=== PATIENT | female | born 1950 | race Hispanic/Latino ===

== ENCOUNTER 2017-07-08 17:04 | Emergency (ER) | payer BC ==
[2017-07-08 17:04] VITALS: BMI 32.9
[2017-07-08 17:11] VITALS: BP 153/71; PULSE 79; RESP 18; TEMP 97.9; O2SAT 100
--- NOTE | 2017-07-08 17:38 | ED PDOC ---
Lower Extremity Pain/Injury Time Seen by Provider: 07/08/17 17:14 Chief Complaint (Nursing): Lower Extremity Problem/Injury Chief Complaint (Provider): Knee Pain History Per: Patient History/Exam Limitations: no limitations Onset/Duration Of Symptoms: Days, Persistent, Worse Since (Constant, but worse for the last 2 days after tripping) Current Symptoms Are (Timing): Still Present Pain Scale Rating Of: 8 Additional History Per: Family Additional Complaint(s): 66 y/o female with history of left meniscus tear x2 years ago, accompanied by her daughters. She complains of left knee pain over the last two days that radiates throughout the left leg, and describes pain as 8/10, and constant. This morning the pain was so severe she was unable to bear weight, which prompted her to be evaluated here. Pain presented after she tripped at work, and has not been relieved with Tylenol or Motrin. Patient also complains of numbness and tingling in her left toes. She denies any calf tenderness, calf swelling, or other complaint. - Knee Description Of Injury: Twisted Currently Unable To: Straighten Alleviating Factor(s): OTC Pain Medication Past Medical History Reviewed: Historical Data, Nursing Documentation, Vital Signs Vital Signs: Last Vital Signs Temp 97.9 F 07/08/17 17:08 Pulse 79 07/08/17 17:08 Resp 18 07/08/17 17:08 BP 153/71 H 07/08/17 17:08 Pulse Ox 100 07/08/17 17:08 - Medical History PMH: Arthritis, Diabetes, HTN, Sleep Apnea - Surgical History Surgical History: No Surg Hx Denies: Pacemaker - Family History Family History: States: Unknown Family Hx - Living Arrangements Living Arrangements: With Family - Social History Current smoker - smoking cessation education provided: No Alcohol: None Drugs: Denies - Home Medications Home Medications: Ambulatory Orders Medication Instructions Recorded Aspirin [Aspirin Low Dose] 81 mg PO DAILY 05/07/15 Diltiazem Hydrochloride [Diltiazem 180 mg PO QAM 05/07/15 HCl E/R] Hydrochlorothiazide [HCTZ] 12.5 mg PO QAM 05/07/15 traMADol [Ultram] 50 mg PO Q6H PRN #20 tab 07/08/17 - Allergies Allergies/Adverse Reactions: Allergies Allergy/AdvReac Type Severity Reaction Status Date / Time No Known Allergies Allergy Verified 07/08/17 17:07 Review of Systems Constitutional: Negative for: Fever Musculoskeletal: Positive for: Leg Pain (Left Knee (anterior and posterior)) Physical Exam - Reviewed Nursing Documentation Reviewed: Yes Vital Signs Reviewed: Yes - Physical Exam Appears: Positive for: Well, Non-toxic Skin: Positive for: Normal Color Eye Exam: Positive for: Normal appearance Neck: Positive for: Normal, Supple Cardiovascular/Chest: Positive for: Regular Rate, Rhythm Respiratory: Positive for: Normal Breath Sounds. Negative for: Respiratory Distress Extremity: Positive for: Tenderness (posterior knee tenderness). Negative for: Normal ROM (decreased knee flexion due to pain), Pedal Edema, Calf Tenderness, Deformity, Swelling Neurologic/Psych: Positive for: Alert, Oriented - ECG O2 Sat by Pulse Oximetry: 100 (RA) Pulse Ox Interpretation: Normal Medical Decision Making Medical Decision Making: Time: 17:14 Impression: Leg Pain Plan: --Knee X-ray --Duplex Lower Extremity Ultra Sound --Tramadol 50mg PO --Reassess --Describes pain as 5/10 after given tramadol 50mg --Time: 1847 FINDINGS: Deep veins: Common femoral, superficial femoral, popliteal and posterior tibial veins were evaluated. All veins examined are compressible. There are no intraluminal filling defects. There is expected blood flow on Doppler imaging. There is change in waveform with augmentation Soft tissues: There is a 6.4 x 1.6 x 2.3 cm popliteal fossa cyst. Impression: No deep venous thrombosis in the visualized vascular segments of the left lower extremity; popliteal cyst X-ray with significant DJD. Scribe Attestation: Documented by Candelario Brooks, acting as a scribe for MARIAA Flores. Provider Scribe Attestation: All medical record entries made by the Scribe were at my direction and personally dictated by me. I have reviewed the chart and agree that the record accurately reflects my personal performance of the history, physical exam, medical decision making, and the department course for this patient. I have also personally directed, reviewed, and agree with the discharge instructions and disposition. Disposition - Clinical Impression Clinical Impression: Knee pain - Patient ED Disposition Is Patient to be Admitted: No Counseled Patient/Family Regarding: Diagnosis, Need For Followup - Disposition Referrals: Deanna Azevedo MD [Staff Provider] - Disposition: Routine/Home Disposition Time: 19:39 Condition: GOOD Prescriptions: traMADol [Ultram] 50 mg PO Q6H PRN #20 tab PRN Reason: Pain Instructions: Osteoarthritis (ED) Forms: [employer] (Romansh)
--- NOTE | 2017-07-08 18:47 | US ---
EXAM: US Duplex Left Lower Extremity Veins EXAM DATE/TIME: 07/08/2017 6:17 PM CLINICAL HISTORY: 66 years old, female; Pain; Leg, lower; Left; Additional info: Posterior knee pain TECHNIQUE: Real-time ultrasound scan of the veins of the left lower extremity with color Doppler flow, spectral waveform analysis and compression. COMPARISON: There are no prior studies for comparison. FINDINGS: Deep veins: Common femoral, superficial femoral, popliteal and posterior tibial veins were evaluated. All veins examined are compressible. There are no intraluminal filling defects. There is expected blood flow on Doppler imaging. There is change in waveform with augmentation Soft tissues: There is a 6.4 x 1.6 x 2.3 cm popliteal fossa cyst. Impression: No deep venous thrombosis in the visualized vascular segments of the left lower extremity; popliteal cyst
--- NOTE | 2017-07-09 10:38 | RAD ---
PROCEDURE: Left Knee Radiographs. HISTORY: Pain. COMPARISON: 12/02/2009 FINDINGS: BONES: There is no acute displaced fracture or bone destruction. Bone alignment is normal. There is periarticular bone demineralization P JOINTS: There is interval progression of severe tricompartmental degenerative osteoarthrosis with reduced joint spaces, marginal osteophytes and tibial spiking, worse in the medial compartment. JOINT EFFUSION: There is a small suprapatellar joint effusion. OTHER FINDINGS: None. IMPRESSION: Progressive severe tricompartmental degenerative osteoarthrosis, worse in the medial compartment. Small suprapatellar joint effusion.
== END 2017-07-08 19:54 | disposition home or self-care (01) ==
LOC: H.ER 17:04
DX: M25.562 Pain in left knee (principal); E11.8 Type 2 diabetes mellitus with unspecified complications; I10 Essential (primary) hypertension; M19.90 Unspecified osteoarthritis, unspecified site; G47.30 Sleep apnea, unspecified

== ENCOUNTER 2018-06-26 10:08 | Inpatient (IN) | payer MEDICARE, BC ==
[~2018-06-26 10:08] MED LIST: Albuterol HFA 90 mcg/actuation (8 g) ONE
[2018-06-26 11:30] LABS: BASO # 0.1 K/uL (0.0-0.2); BASO % 0.7 % (0.0-2.0); EOS # 0.1 K/uL (0.0-0.7); EOS % 0.5 % (0.0-4.0); LYMPH # 2.3 K/uL (1.0-4.3); MEAN CELL VOLUME 86.5 fl (81.0-99.0); MEAN CORPUSCULAR HGB CONC 34.7 g/dL (33.0-37.0); MEAN PLATELET VOLUME 10.1 fl (7.2-11.7); MONO # 0.7 K/uL (0.0-0.8); MONO % 6.6 % (0.0-10.0); NEUT # 7.7 K/uL (1.8-7.0); NEUT % 71.2 % (50.0-75.0); RBC 5.02 Mil/uL (3.80-5.20); RED CELL DISTRIBUTION WIDTH 12.7 % (11.5-14.5); WHITE BLOOD COUNT 10.8 K/uL (4.8-10.8)
[2018-06-26] MEDS ORDERED: Absorbable Gelatin Sponge Size 12-7 ONE (11:37)
[2018-06-26] MEDS ORDERED: Thrombin Topical 5,000 Int Units Spray Kit ONE (11:38)
[2018-06-26] MEDS ORDERED: ceFAZolin IV 1 gm in Dextrose 2 GM/100 ML BAG IVPB ONE (11:38)
[2018-06-26] MEDS ORDERED: Propofol 10 mg/ml Inj (20 ML) ONE (12:11)
[2018-06-26] MEDS ORDERED: Rocuronium 10 mg/ml (5 ml) ONE (12:12)
[2018-06-26] MEDS ORDERED: ePHEDrine 50 mg/ml Inj ONE (12:12)
[2018-06-26] MEDS ORDERED: Lidocaine 4% (Laryng-O-Jet) Kit MM ONE (12:12)
[2018-06-26] MEDS ORDERED: Midazolam 2 MG/2 ML VIAL ONE (12:12)
[2018-06-26] MEDS ORDERED: Succinylcholine 200 mg/10 ml Inj IV ONE (12:12)
--- NOTE | 2018-06-26 12:39 | CP.PCM.HP ---
Past Patient History - Past Medical History & Family History Past Medical History?: Yes - Past Social History Smoking Status: Never Smoked - CARDIAC Hx Cardiac Disorders: Yes Hx Hypercholesterolemia: Yes Hx Hypertension: Yes (pulmonary) Hx Pacemaker: No - PULMONARY Hx Respiratory Disorders: Yes Hx Asthma: Yes Hx Sleep Apnea: Yes (c-pap) - NEUROLOGICAL Hx Paralysis: No Other/Comment: TREMORS LEFT ARM - ENDOCRINE/METABOLIC Hx Diabetes Mellitus Type 2: Yes (borderline just diet) - HEMATOLOGICAL/ONCOLOGICAL Hx Blood Disorders: No Hx Blood Transfusions: No - INTEGUMENTARY Hx Dermatological Problems: No - MUSCULOSKELETAL/RHEUMATOLOGICAL Hx Musculoskeletal Disorders: Yes Hx Arthritis: Yes - GASTROINTESTINAL Hx Gastrointestinal Disorders: No - GENITOURINARY/GYNECOLOGICAL Hx Genitourinary Disorders: No - PSYCHIATRIC Hx Psychophysiologic Disorder: No Hx Emotional Abuse: No Hx Physical Abuse: No Hx Substance Use: No - SURGICAL HISTORY Hx Surgeries: No Hx Tubal Ligation: Yes - ANESTHESIA Hx Anesthesia: Yes Hx Anesthesia Reactions: No Hx Malignant Hyperthermia: No Has any member of the family had a problem w/ anesthesia?: No Meds Allergies/Adverse Reactions: Allergies Allergy/AdvReac Type Severity Reaction Status Date / Time No Known Allergies Allergy Verified 06/25/18 14:15 Results - Vital Signs Recent Vital Signs: Last Vital Signs Temp 97.9 F 06/26/18 12:03 Pulse 67 06/26/18 12:11 Resp 18 06/26/18 12:03 BP 130/62 06/26/18 12:03 Pulse Ox 98 06/26/18 12:03 - Labs Result Diagrams: 06/26/18 11:20 Labs: Laboratory Results - last 24 hr 06/26/18 06/26/18 11:20 11:20 WBC 10.8 RBC 5.02 Hgb 15.0 Hct 43.4 MCV 86.5 MCH 30.0 MCHC 34.7 RDW 12.7 Plt Count 281 MPV 10.1 Neut % (Auto) 71.2 Lymph % (Auto) 21.0 [place] % (Auto) 6.6 Eos % (Auto) 0.5 Baso % (Auto) 0.7 Neut # (Auto) 7.7 H Lymph # (Auto) 2.3 [place] # (Auto) 0.7 Eos # (Auto) 0.1 Baso # (Auto) 0.1 Blood Type A POSITIVE Antibody Screen Negative BBK History Checked No verified bt
[2018-06-26] MEDS ORDERED: Lactated Ringer's 1,000 ML IV ONE ×2 (13:00→15:07)
[2018-06-26] MEDS: Morphine 1 mg/ml preservative-free Inj(Duramorph) ONE ×2 (13:59→14:26)
[2018-06-26] MEDS: EPINEPHrine 1 mg/ml (1:1000) Inj ONE ×2 (13:59→14:26)
[2018-06-26] MEDS ORDERED: Sodium Chloride 0.9% Inj (10mL) IV ONE ×2 (13:59→14:26)
[2018-06-26] MEDS ORDERED: Dexamethasone 4 mg/1 ml ONE (14:00)
[2018-06-26] MEDS ORDERED: Bupivacaine 0.5% Inj(30mL) IJ ONE ×2 (14:00→14:26)
[2018-06-26] MEDS ORDERED: Neostigmine 1:1000 (1 mg/ml) Inj ONE (14:32)
[2018-06-26] MEDS ORDERED: HYDROmorphone 0.5 mg/0.5 ml ISec IVP PRN (15:08)
--- NOTE | 2018-06-26 15:10 | PCM.SURG1 ---
Surgeon's Initial Post Op Note - Surgeon's Notes Surgeon: Deanna Azevedo MD Clinical Law Professor: James Rankin PA-C; aYkov Roy PA-C Type of Anesthesia: General Endo Pre-Operative Diagnosis: Left knee osteorthritis Operative Findings: see op report Post-Operative Diagnosis: same as pre-op dx Operation Performed: L TKR Specimen/Specimens Removed: left knee bone and soft tissue Estimated Blood Loss: EBL {In ML}: 50 Date of Surgery/Procedure: 06/26/18 Time of Surgery/Procedure: 13:00
--- NOTE | 2018-06-26 15:52 | CP.PCM.HP ---
History of Present Illness - History of Present Illness History of Present Illness: 67 yo female with pmhx of CAD, arthritis, HLD, and HTN, seen and evaluated in the PACU POD 0 left total knee replacement. She is accompanied by her daughter at bedside. She has a hx of osteoarthritis of the left knee and had tried cons ervative therapy in the past which failed. She is tired but aware of her surroundings. She states she is in minimal pain. Due to anesthesia effects it is difficult to assess patient status and history. Chart and history reviewed. Patient denies N/V/F/C/SOB/CP. PMHx: CAD, arthritis, HLD, HTN PSHx: Tubal ligation FH: mother heart disease, brother heart disease Meds: Breo ellipta, ventolin HFA, HCTZ, metoprolol, pracachol, aspirin SH: never smoker, denies drinking and illicit drug use All: NKDA Present on Admission - Present on Admission Any Indicators Present on Admission: No Review of Systems - Constitutional Constitutional: As Per HPI - Cardiovascular Cardiovascular: As Per HPI. absent: Chest Pain - Respiratory Respiratory: As Per HPI. absent: Dyspnea - Gastrointestinal Gastrointestinal: absent: Abdominal Pain Past Patient History - Past Medical History & Family History Past Medical History?: Yes - Past Social History Smoking Status: Never Smoked - CARDIAC Hx Cardiac Disorders: Yes Hx Hypercholesterolemia: Yes Hx Hypertension: Yes (pulmonary) Hx Pacemaker: No - PULMONARY Hx Respiratory Disorders: Yes Hx Asthma: Yes Hx Sleep Apnea: Yes (c-pap) - NEUROLOGICAL Hx Paralysis: No Other/Comment: TREMORS LEFT ARM - ENDOCRINE/METABOLIC Hx Diabetes Mellitus Type 2: Yes (borderline just diet) - HEMATOLOGICAL/ONCOLOGICAL Hx Blood Disorders: No Hx Blood Transfusions: No - INTEGUMENTARY Hx Dermatological Problems: No - MUSCULOSKELETAL/RHEUMATOLOGICAL Hx Musculoskeletal Disorders: Yes Hx Arthritis: Yes - GASTROINTESTINAL Hx Gastrointestinal Disorders: No - GENITOURINARY/GYNECOLOGICAL Hx Genitourinary Disorders: No - PSYCHIATRIC Hx Psychophysiologic Disorder: No Hx Emotional Abuse: No Hx Physical Abuse: No Hx Substance Use: No - SURGICAL HISTORY Hx Surgeries: No Hx Tubal Ligation: Yes - ANESTHESIA Hx Anesthesia: Yes Hx Anesthesia Reactions: No Hx Malignant Hyperthermia: No Has any member of the family had a problem w/ anesthesia?: No Meds Allergies/Adverse Reactions: Allergies Allergy/AdvReac Type Severity Reaction Status Date / Time No Known Allergies Allergy Verified 10/15/18 14:15 Physical Exam - Constitutional Appears: Well, Non-toxic, No Acute Distress - Head Exam Head Exam: ATRAUMATIC, NORMOCEPHALIC - Eye Exam Eye Exam: EOMI, Normal appearance - ENT Exam ENT Exam: Mucous Membranes Moist - Respiratory Exam Respiratory Exam: Clear to Auscultation Bilateral, NORMAL BREATHING PATTERN - Cardiovascular Exam Cardiovascular Exam: REGULAR RHYTHM, +S1, +S2 - GI/Abdominal Exam GI & Abdominal Exam: Soft. absent: Tenderness - Extremities Exam Extremities exam: Positive for: normal capillary refill Additional comments: POD 0 L total knee replacement - Neurological Exam Neurological exam: Alert, Oriented x3 - Psychiatric Exam Psychiatric exam: Normal Affect, Normal Mood Results - Vital Signs Recent Vital Signs: Last Vital Signs Temp 97.9 F 06/26/18 12:03 Pulse 67 06/26/18 12:11 Resp 18 06/26/18 12:03 BP 130/62 06/26/18 12:03 Pulse Ox 98 06/26/18 12:03 - Labs Result Diagrams: 06/26/18 11:20 Labs: Laboratory Results - last 24 hr 06/26/18 06/26/18 06/26/18 11:20 11:20 11:37 WBC 10.8 RBC 5.02 Hgb 15.0 Hct 43.4 MCV 86.5 MCH 30.0 MCHC 34.7 RDW 12.7 Plt Count 281 MPV 10.1 Neut % (Auto) 71.2 Lymph % (Auto) 21.0 [place] % (Auto) 6.6 Eos % (Auto) 0.5 Baso % (Auto) 0.7 Neut # (Auto) 7.7 H Lymph # (Auto) 2.3 [place] # (Auto) 0.7 Eos # (Auto) 0.1 Baso # (Auto) 0.1 Blood Type A POSITIVE Blood Type Confirm A POSITIVE Antibody Screen Negative BBK History Checked No verified bt Assessment & Plan - Assessment and Plan (Free Text) Assessment: 67 yo female patient with pmhx of osteoarthritis, CAD, HLD, and HTN admitted POD 0 s/p left total knee replacement Plan: 1. Osteoarthritis - Left total knee replacement - POD 0 s/p L TKR - Ortho on board - recs appreciated - CBC w/ diff f/u - BMP f/u - DVT prophylaxis - see below - pain controlled - acetaminophen 325mg - oxycodone 5mg, 10mg ER - ultram 50 mg - dilaudid 0.5 mg - prophylaxis - ancef 1g MIKE dose #2 19:00 (06/26), dose #3 01:00 (06/27) - UA ordered - f/u - L knee x-ray ordered - f/u - PT/OT consult - pending results and recommendations 2. HTN - chronic, controlled - continue home rx 3. HLD - chronic, controlled - continue home rx 4. CAD - chronic, controlled - continue home rx 5. Diet - heart healthy 6. DVT prophylaxis - start lovenox tomorrow - Date & Time Date: 06/26/18 Time: 16:12
[2018-06-26] MEDS ORDERED: ceFAZolin 1 GM in Sodium Chloride 0.9% 100 ML IVPB ONE (19:00)
[2018-06-26] MEDS: oxyCODONE 10 mg ER Tab (oxyCONTIN) PO SCH (21:59)
[2018-06-26] MEDS: Fluticasone-Salmeterol 250-50mcg Diskus IH SCH (21:59)
[2018-06-26] MEDS: Metoprolol Succinate 25 mg XL Tab PO SCH (22:00)
[2018-06-27] MEDS: Lactated Ringer's 1,000 ML IV SCH ×2 (00:28→09:49)
--- NOTE | 2018-06-27 00:29 | OP ---
PROCEDURE DATE: 06/26/2018 PREOPERATIVE DIAGNOSIS: Left knee osteoarthritis. POSTOPERATIVE DIAGNOSIS: Left knee osteoarthritis. PROCEDURE: Left total knee replacement. IMPLANTS: [employer] size 2.5 tibial baseplate, size 2.5 femur, 11 mm polyethylene insert, 29 mm patella. ATTENDING PHYSICIAN: Deanna Azevedo MD. DOUBLE END SEWER: James Rankin PA-C. ANESTHESIA TYPE: General. ESTIMATED BLOOD LOSS: 100 mL. COMPLICATIONS: None. HISTORY: The patient with prolonged history of left knee pain progressively getting worse despite extensive conservative management, which included activity modification, injections, anti-inflammatory modification and physical therapy. X-rays had revealed advanced arthritis. Patient was indicated for total knee replacement due to continued pain and limited mobility. I had a detailed discussion with the patient in the office explaining the nature of the surgery, alternatives of surgery, risks and benefits, rehabilitation protocol and surgical markings. Risks of surgery include but not limited to continued pain, lack of motion, infection, vascular injury, DVT / PE, nerve injury including peroneal nerve dysfunction, reflex sympathetic dystrophy, compartment syndrome, unforeseen medical and/or anesthesia complications, limb loss, and even . The patient expressed an understanding of the risks and possible benefits of the procedure, and is also aware of the alternatives to surgery. PROCEDURE: Paragraph 1: On the day of the surgery, the patient was admitted to pre-operative holding area. A laterality sheet was completed confirming the correct operative site. The correct surgical knee was marked in the holding area and informed consent was signed from the patient. Once again, I reviewed the risks and benefits of the surgery with the patient in detail. These risks include but are not limited to continued pain, lack of motion, infection, vascular injury, DVT / PE, nerve injury including peroneal nerve dysfunction, reflex sympathetic dystrophy, symptomatic hardware, need for further procedure and surgeries, instability, iatrogenic fractures, compartment syndrome, unforeseen medical and/or anesthesia complications, limb loss, and even . The patient expressed an understanding of the risks and possible benefits of the procedure, also aware of the alternatives to surgery and signed the informed consent. Paragraph 2: The patient was transported to the operating room and placed in the supine position, general anesthesia was obtained. Exam under anesthesia revealed range of motion 0 to 120, 3 degrees of varus alignment, which was correctable. Paragraph 3: A padded tourniquet was applied to patient's operative thigh and appropriate prophylactic antibiotics were given. The operative leg was draped and prepped in standard sterile manner. Timeout was completed, confirming patient's left knee to be the correct operative site. Using an Esmarch, the extremity was exsanguinated and tourniquet was inflated to 350 mmHg. The surgical incision markings were made using patella border, tibial tubercle, patella and quadriceps tendon. Using a 10 blade, a midline incision was made. Skin dissection was taken until the prepatellar fascia was identified and the corners of the patellar tendon were marked for proper closure at the end of the procedure. Using a fresh 10 blade, a medial parapatellar arthrotomy was performed. The knee was exposed in the standard manner. The deep MCL was elevated for exposure, medial and lateral menisci were removed, ACL and PCL were also transected. The tibia was subluxed anteriorly. Paragraph 4: Planned tibial cut was made with power saw, using extra-medullary guide, perpendicular to mechanical axis of the tibia. After the cut was made, the alignment was also checked and was found to be appropriate. Tibial cut surface was measured with trial base plate and it was noted that 2.5 tibial baseplate was provide sufficient coverage without overhang. Tibial component was externally rotated and marked. Paragraph 5: Next, the knee was placed into 90 degrees of flexion. A drill hole was made within the femoral notch anterior to PCL insertion for placement of intramedullary femoral jackie. Intramedullary femoral jackie was inserted within the femoral canal and planned distal femoral cut was made. After the cut, knee was brought into full extension. Spacer blocks were used to check the extension balancing both in full extension and 30 degrees of flexion. It was found that 11 mm trial spacer block allowed full extension with symmetric varus and valgus balancing. Paragraph 6: Next we proceed with Patella resurfacing. Patella width was found to 25 mm [place] Patella width. Using the free-hand technique the arthritic patella surface was resected. Patella was sized using the guide and it was noted that 29 mm. Patella dome button would be appropriate for the patient. Paragraph 7: Next the size of femoral component was determined using the posterior referencing guide. It was noted that a 2.5 femur would be appropriate for this patient without causing any significant notching. A 4 x 1 cutting block was placed and flexion gap balancing was checked. The flexion gap was found to be symmetric to the extension gap. Anterior and posterior condyle, anterior and posterior chamfer cuts were made. Next, appropriate size box cut for femoral component was prepared using the guide. Paragraph 8: The femoral trial component was impacted onto the distal femur. Appropriate size tibial trial component was also placed on the cut surface of the tibia. Using the drill and punch, keel for tibial implant was prepared. Trial tibial tray was secured onto the tibia using pins. Different size trial polyethylene inserts were secured on to the trial tibial tray to critically assess the following parametes: Full range of motion, extension and flexion gap balancing, mid-flexion stability, anterior and posterior drawer, and patellar tracking. All parameter were found to be satisfactory with 11 mm polyethylene insert. Paragraph 9: All the trial components were removed. Implants were opened on the back table. Cement was mixed and we proceed with cement fixation of the implants. Tibial tray, femoral component and patellar dome button were secured with cement. Polyethylene insert was secured onto the tibial tray using locking mechanism. The knee was reduced and brought into full extension. Cement was allowed to harden until final component fixation. Knee was taken through the final range of motion for stability testing, and found to be satisfactory. Paragraph 10: 60 cc of custom cocktail mixture was injected into posterior capsule, MCL, LCL, quadriceps tendon, and patellar tendon. Wound was copiously irrigated with sterile antibiotic solution using pulse lavage. Arthrotomy was closed using heavy suture and wound was closed in standard manner. Patient was extubated, transferred to stretcher and taken to the recovery room. Post-operative instructions were provided, physical therapy consult was requested along with DVT prophylaxis and appropriate pain medications. During this procedure, I was assisted by James Rankin PA-C, who assisted in positioning the patient on the operating room table as well as transferring the patient from the operating room table to the recovery room stretcher. In addition, James Rankin PA-C assisted me during the actual operative procedure by positioning, protecting critical neurovascular structures, exposure of the joint, and proper positioning of the implants. The presence of James Rankin PA-C as my operative talent assistant was medically necessary to ensure the utmost safety of the patient in the pre, intra-, and post-operative periods. Deanna Azevedo MD [facility] # [id number]
[2018-06-27] MEDS: oxyCODONE 5 mg Immediate Release Tab PO PRN ×3 (01:11→13:52)
[2018-06-27] MEDS ORDERED: ceFAZolin 1 GM in Sodium Chloride 0.9% 100 ML IVPB ONE (06:00)
[2018-06-27 06:53] LABS: BASO % 0.1 % (0.0-2.0); HEMOGLOBIN 10.7 g/dL (12.0-16.0); LYMPH # 1.2 K/uL (1.0-4.3); LYMPH % 8.2 % (20.0-40.0); MEAN CELL VOLUME 86.2 fl (81.0-99.0); MEAN CORPUSCULAR HEMOGLOBIN 30.6 pg (27.0-31.0); MEAN CORPUSCULAR HGB CONC 35.5 g/dL (33.0-37.0); MEAN PLATELET VOLUME 9.9 fl (7.2-11.7); MONO # 1.4 K/uL (0.0-0.8); MONO % 9.4 % (0.0-10.0); NEUT # 12.1 K/uL (1.8-7.0); NEUT % 82.3 % (50.0-75.0); NRBC % 0.1 % (0.0-0.0); PLATELET COUNT 202 K/uL (130-400); RBC 3.49 Mil/uL (3.80-5.20); RED CELL DISTRIBUTION WIDTH 12.8 % (11.5-14.5); WHITE BLOOD COUNT 14.7 K/uL (4.8-10.8)
[2018-06-27 07:01] LABS: BLOOD UREA NITROGEN 19 mg/dl (7-17); CALCIUM 8.2 mg/dL (8.4-10.2); GFR NON-AFRICAN AMERICAN > 60
--- NOTE | 2018-06-27 08:49 | CP.PCM.PN ---
Subjective - Date & Time of Evaluation Date of Evaluation: 06/27/18 Time of Evaluation: 08:35 - Subjective Subjective: 67 yo F s/p LTKR POD#1 Pt seen and examined at bedside, comfortable in bed Pt c/o mild left knee and thigh pain, well controlled with pain meds Pt denies any SOB, chest pain, N/V/D, numbness/tingling LLE Objective - Vital Signs/Intake and Output Vital Signs (last 24 hours): Temp Pulse Resp BP Pulse Ox 98.2 F 75 20 111/63 97 06/27/18 08:28 06/27/18 08:28 06/27/18 08:28 06/27/18 08:28 06/27/18 08:28 - Medications Medications: Current Medications Acetaminophen (Tylenol 325mg Tab) 325 mg PO Q4 PRN PRN Reason: pain1-3 Aspirin (Ecotrin) 81 mg PO DAILY [facility] Bisacodyl (Dulcolax) 5 mg PO DAILY PRN PRN Reason: Constipation Celecoxib (Celebrex) 100 mg PO Q12 [facility] Last Admin: 06/26/18 22:00 Dose: 100 mg Docusate Sodium (Colace) 100 mg PO TID [facility] Enoxaparin Sodium (Lovenox) 40 mg SC DAILY [facility]; Protocol Ferrous Sulfate (Feosol) 325 mg PO BID [facility] Hydromorphone HCl (Dilaudid) 0.5 mg IVP Q10M PRN PRN Reason: Pain, moderate (4-7) Lactated Ringer's (Lactated Ringer's) 1,000 mls @ 125 mls/hr IV .Q8H [facility] Last Admin: 06/27/18 00:28 Dose: Not Given Losartan Potassium (Cozaar) 25 mg PO DAILY [facility] Metoprolol Succinate (Toprol Xl) 25 mg PO Q12 [facility] Last Admin: 06/26/18 22:00 Dose: 25 mg Oxycodone HCl (Oxycontin Extended Release Tab) 10 mg PO Q12 [facility] Stop: 07/10/18 21:01 Last Admin: 06/26/18 21:59 Dose: 10 mg Oxycodone HCl (Oxycodone Immediate Release Tab) 5 mg PO Q4 PRN PRN Reason: pain4-6 Last Admin: 06/27/18 01:11 Dose: 5 mg Pravastatin Sodium (Pravachol) 20 mg PO DAILY [facility] Fluticasone/Salmeterol (Advair Diskus 250/50) 1 puff IH Q12 [facility] Last Admin: 06/26/18 21:59 Dose: 1 puff Tramadol HCl (Ultram) 50 mg PO Q4 PRN PRN Reason: pain7-10 Last Admin: 06/27/18 05:01 Dose: 50 mg - Labs Labs: 06/27/18 06:35 06/27/18 06:35 - Constitutional Appears: Well, Non-toxic, No Acute Distress - Respiratory Exam Respiratory Exam: Clear to Ausculation Bilateral, NORMAL BREATHING PATTERN - Cardiovascular Exam Cardiovascular Exam: REGULAR RHYTHM, RRR - Extremities Exam Additional comments: LLE: knee dressing C/D/I Calves soft and nontender b/l N/V intact distally Normal ROM left ankle Distal pulses wnl No foot drop Assessment and Plan - Assessment and Plan (Free Text) Assessment: 67 yo F s/p LTKR POD#1 Plan: Pain control DVT ppx PT/OT- WBAT LLE SCD b/l LE Incentive Spirometer F/u daily labs Discussed with Dr. Azevedo
[2018-06-27] MEDS: oxyCODONE 10 mg ER Tab (oxyCONTIN) PO SCH ×2 (09:30→20:19)
[2018-06-27] MEDS: Fluticasone-Salmeterol 250-50mcg Diskus IH SCH ×2 (09:31→22:08)
[2018-06-27] MEDS: Pravastatin Sodium 20 MG TAB PO SCH (09:33)
[2018-06-27] MEDS: Enoxaparin 40 mg Syringe SC SCH (09:35)
[2018-06-27] MEDS: Metoprolol Succinate 25 mg XL Tab PO SCH ×2 (09:50→22:10)
[2018-06-27 10:15] LABS: LYMPHOCYTE 9 % (20-50); MONOCYTE 10 % (0-10); NEUTROPHIL 81 % (42-75); PLATELET ESTIMATE NORMAL (NORMAL); TOTAL CELLS COUNTED 100
--- NOTE | 2018-06-27 10:58 | CP.PCM.PN ---
<Raleigh Yadavson - Last Filed: 06/27/18 14:02> Subjective - Date & Time of Evaluation Date of Evaluation: 06/27/18 Time of Evaluation: 10:51 - Subjective Subjective: 67 yo female seen and evaluated at bedside POD 1 s/p left total knee replacement. She is accompanied by her daughter at bedside. She states that she is experiencing mild pain at the surgical site and in her thigh but it is well controlled with pain medication. States that she has been able to eat and that she has urinated multiple times. She is AAOx3 and NAD. She denies N/V/F/C/SOB/CP and reports no posterior calf pain. Objective - Vital Signs/Intake and Output Vital Signs (last 24 hours): Temp Pulse Resp BP Pulse Ox 98.2 F 84 20 103/59 L 97 06/27/18 08:28 06/27/18 09:50 06/27/18 08:28 06/27/18 09:50 06/27/18 09:40 - Medications Medications: Current Medications Acetaminophen (Tylenol 325mg Tab) 325 mg PO Q4 PRN PRN Reason: pain1-3 Aspirin (Ecotrin) 81 mg PO DAILY [facility] Last Admin: 06/27/18 09:34 Dose: 81 mg Bisacodyl (Dulcolax) 5 mg PO DAILY PRN PRN Reason: Constipation Celecoxib (Celebrex) 100 mg PO Q12 [facility] Last Admin: 06/27/18 09:34 Dose: 100 mg Docusate Sodium (Colace) 100 mg PO TID [facility] Last Admin: 06/27/18 09:32 Dose: 100 mg Enoxaparin Sodium (Lovenox) 40 mg SC DAILY [facility]; Protocol Last Admin: 06/27/18 09:35 Dose: 40 mg Ferrous Sulfate (Feosol) 325 mg PO BID [facility] Last Admin: 06/27/18 09:31 Dose: 325 mg Hydromorphone HCl (Dilaudid) 0.5 mg IVP Q10M PRN PRN Reason: Pain, moderate (4-7) Lactated Ringer's (Lactated Ringer's) 1,000 mls @ 125 mls/hr IV .Q8H [facility] Last Admin: 06/27/18 09:49 Dose: Not Given Losartan Potassium (Cozaar) 25 mg PO DAILY [facility] Last Admin: 06/27/18 09:50 Dose: Not Given Metoprolol Succinate (Toprol Xl) 25 mg PO Q12 [facility] Last Admin: 06/27/18 09:50 Dose: Not Given Oxycodone HCl (Oxycontin Extended Release Tab) 10 mg PO Q12 [facility] Stop: 07/10/18 21:01 Last Admin: 06/27/18 09:30 Dose: 10 mg Oxycodone HCl (Oxycodone Immediate Release Tab) 5 mg PO Q4 PRN PRN Reason: pain4-6 Last Admin: 06/27/18 09:29 Dose: 5 mg Pravastatin Sodium (Pravachol) 20 mg PO DAILY [facility] Last Admin: 06/27/18 09:33 Dose: 20 mg Fluticasone/Salmeterol (Advair Diskus 250/50) 1 puff IH Q12 [facility] Last Admin: 06/27/18 09:31 Dose: 1 puff Tramadol HCl (Ultram) 50 mg PO Q4 PRN PRN Reason: pain7-10 Last Admin: 06/27/18 05:01 Dose: 50 mg - Labs Labs: 06/27/18 06:35 06/27/18 06:35 - Constitutional Appears: Well, Non-toxic, No Acute Distress - Head Exam Head Exam: ATRAUMATIC, NORMOCEPHALIC - Eye Exam Eye Exam: EOMI, Normal appearance - ENT Exam ENT Exam: Mucous Membranes Moist - Respiratory Exam Respiratory Exam: Clear to Ausculation Bilateral, NORMAL BREATHING PATTERN - Cardiovascular Exam Cardiovascular Exam: REGULAR RHYTHM, +S1, +S2 - GI/Abdominal Exam GI & Abdominal Exam: Soft, Normal Bowel Sounds - Extremities Exam Extremities Exam: Normal Capillary Refill. absent: Calf Tenderness, Pedal Edema Additional comments: Left knee dressing c/d/i can move toes and ankle without guarding or tenderness no streaking or redness appreciated Resting tremor noted to L UE - Neurological Exam Neurological Exam: Alert, Awake, Oriented x3 - Psychiatric Exam Psychiatric exam: Normal Affect, Normal Mood - Skin Skin Exam: Normal Color, Warm Assessment and Plan - Assessment and Plan (Free Text) Assessment: 67 yo female patient with pmhx of osteoarthritis, CAD, HLD, and HTN admitted POD 1 s/p left total knee replacement Plan: 1. Osteoarthritis - Left total knee replacement - POD 1 s/p L TKR - Ortho on board - recs appreciated - pain control, DVT ppx, SCD b/l LE, continue with PT/OT, f/u labs, incentive spirometry - continue monitor labs - DVT prophylaxis - see below - pain controlled - acetaminophen 325mg - oxycodone 5mg, 10mg ER - ultram 50 mg - prophylaxis - ancef 1g MIKE 3 doses given - UA ordered - f/u - L knee x-ray ordered - taken, read pending f/u - PT/OT consult - instructed to WBAT to LLE - recs - benefit from continued skilled PT to address deficits and maximize functional independence 2. HTN - chronic, controlled - continue home rx 3. HLD - chronic, controlled - continue home rx 4. CAD - chronic, controlled - continue home rx 5. Diet - heart healthy 6. DVT prophylaxis - Lovenox 40mg <Sandra Noel - Last Filed: 06/27/18 16:09> Objective - Vital Signs/Intake and Output Vital Signs (last 24 hours): Temp Pulse Resp BP Pulse Ox 98.2 F 84 20 103/59 L 97 06/27/18 08:28 06/27/18 09:50 06/27/18 08:28 06/27/18 09:50 06/27/18 09:40 - Medications Medications: Current Medications Acetaminophen (Tylenol 325mg Tab) 325 mg PO Q4 PRN PRN Reason: pain1-3 Aspirin (Ecotrin) 81 mg PO DAILY [facility] Last Admin: 06/27/18 09:34 Dose: 81 mg Bisacodyl (Dulcolax) 5 mg PO DAILY PRN PRN Reason: Constipation Celecoxib (Celebrex) 100 mg PO Q12 [facility] Last Admin: 06/27/18 09:34 Dose: 100 mg Docusate Sodium (Colace) 100 mg PO TID [facility] Last Admin: 06/27/18 13:54 Dose: 100 mg Enoxaparin Sodium (Lovenox) 40 mg SC DAILY [facility]; Protocol Last Admin: 06/27/18 09:35 Dose: 40 mg Ferrous Sulfate (Feosol) 325 mg PO BID [facility] Last Admin: 06/27/18 09:31 Dose: 325 mg Hydromorphone HCl (Dilaudid) 0.5 mg IVP Q10M PRN PRN Reason: Pain, moderate (4-7) Lactated Ringer's (Lactated Ringer's) 1,000 mls @ 125 mls/hr IV .Q8H [facility] Last Admin: 06/27/18 09:49 Dose: Not Given Losartan Potassium (Cozaar) 25 mg PO DAILY [facility] Last Admin: 06/27/18 09:50 Dose: Not Given Metoprolol Succinate (Toprol Xl) 25 mg PO Q12 [facility] Last Admin: 06/27/18 09:50 Dose: Not Given Oxycodone HCl (Oxycontin Extended Release Tab) 10 mg PO Q12 [facility] Stop: 07/10/18 21:01 Last Admin: 06/27/18 09:30 Dose: 10 mg Oxycodone HCl (Oxycodone Immediate Release Tab) 5 mg PO Q4 PRN PRN Reason: pain4-6 Last Admin: 06/27/18 13:52 Dose: 5 mg Pravastatin Sodium (Pravachol) 20 mg PO DAILY [facility] Last Admin: 06/27/18 09:33 Dose: 20 mg Fluticasone/Salmeterol (Advair Diskus 250/50) 1 puff IH Q12 [facility] Last Admin: 06/27/18 09:31 Dose: 1 puff Tramadol HCl (Ultram) 50 mg PO Q4 PRN PRN Reason: pain7-10 Last Admin: 06/27/18 05:01 Dose: 50 mg - Labs Labs: 06/27/18 06:35 06/27/18 06:35 Attending/Attestation - Attestation I have personally seen and examined this patient.: Yes I have fully participated in the care of the patient.: Yes I have reviewed all pertinent clinical information, including history, physical exam and plan: Yes Notes (Text): Additional Note : 1. Primary OA Left Knee s/p TKR - Pain Mgt - DVT proph - PT/OT -Incentive spirometry - plan to d/c pt to TCU 2. Tremors ? Benign Essential -Neurology consulted 3. Mild Acute Blood Loss Anemia , post operative - start Ferrous 4. HTN - hold HCTZ as pt has low normal BP today and sl hypovolemic
[2018-06-27] MEDS ORDERED: Bisacodyl 5mg EC Tab PO PRN (12:00)
[2018-06-27 12:31] LABS: SQUAMOUS EPITHIAL 8 /hpf (0-5); URINE BILIRUBIN NEGATIVE (NEGATIVE); URINE BLOOD NEGATIVE (NEGATIVE); URINE CLARITY CLOUDY (Clear); URINE COLOR YELLOW (YELLOW); URINE GLUCOSE (UA) NEG (Normal); URINE LEUKOCYTE ESTERASE MOD Leu/uL (Negative); URINE PROTEIN NEGATIVE (NEGATIVE); URINE UROBILINOGEN 0.2-1.0 mg/dL (0.2-1.0)
--- NOTE | 2018-06-27 14:21 | PQF ---
PROVIDER RESPONSE TEXT: Mild Intermittent Asthma REVIEWER QUERY TEXT: Asthma Specificity and Type Asthma is documented in the Medical Record in the [facility] template Being treated with Advair Diskus. Please specify the type and severity of asthma and indicate if this is associated with exacerbation o r status asthmaticus. Such as: -- Mild intermittent -- Mild persistent -- Moderate persistent -- Severe persistent -- Exercise induced bronchospasm -- Cough variant asthma -- Other, please specify The patient's Clinical Indicators include: [facility] template: Asthma : YES Medication: Advair Diskus Query created by: Irene Gonzalez on 06/27/2018 2:09 PM Electronically signed by: Sandra Noel MD 06/27/2018 2:18 PM
--- NOTE | 2018-06-27 14:21 | PQF ---
PROVIDER RESPONSE TEXT: Mild acute Blood Loss anemia REVIEWER QUERY TEXT: Clarification of Clinical Diagnostic Findings Please clarify documentation or clinical relevance for the clinical / diagnostic findings or whether those are insignificant or unable to be further specified. Would you please clarify if there is an associated diagnosis or not to go along with the H*H findings : The patient's Clinical Indicators include: Diagnosis Osteoarthritis L knee and S/P TKR INTRAOP INTAKE: 1,000 ml EBL: 100 ml Medication: Feosol Query created by: Irene Gonzalez on 06/27/2018 2:09 PM Electronically signed by: Sandra Noel MD 06/27/2018 2:18 PM
[2018-06-27 16:28] VITALS: RESP 18
--- NOTE | 2018-06-27 16:39 | RAD ---
Date of service: 06/26/2018 PROCEDURE: Left Knee Radiographs. HISTORY: Pain. COMPARISON: None. FINDINGS: BONES: Status post recent left total knee arthroplasty. Femoral and tibial components appear well centered. Tibial stem is cemented. Anterior skin sutures in place and normal soft tissue postop changes noted JOINTS: Prior history of left knee arthrosis JOINT EFFUSION: Small effusion suggested OTHER FINDINGS: None. IMPRESSION: Recent postop changes as above.
--- NOTE | 2018-06-27 20:03 | CP.PCM.CON ---
History of Present Illness - History of Present Illness History of Present Illness: Neurology Consultation Note: Mrs. Wolf is a 67-year-old woman with a past medical history of CAD, arthritis, HLD, and HTN, who had a left total knee replacement today and was reported to have a tremor of the left arm. Neurology was consulted to assist with the management and work-up. The patient states that she has had this tr emor for over one year now and seems to get worse when she is stressed out. Review of Systems - Constitutional Constitutional: absent: As Per HPI, Anorexia, Chills, Daytime Sleepiness, Excessive Sweating, Fatigue, Fever, Frequent Falls, Headache, Increased Appetite, Lethargy, Malaise, Night Sweats, Snoring, Sleep Apnea, Weight Gain, Weight Loss, Weakness, Other - EENT Eyes: absent: As Per HPI, Blind Spots, Blurred Vision, Change in Vision, Decreased Night Vision, Diplopia, Discharge, Dry Eye, Exophthalmos, Floaters, Irritation, Itchy Eyes, Loss of Peripheral Vision, Pain, Photophobia, Requires Corrective Lenses, Sees Flashes, Spots in Vision, Tunnel Vision, Other Visual Disturbances, Loss of Vision, Other Ears: absent: As Per HPI, Decreased Hearing, Ear Discharge, Ear Pain, Tinnitus, Abnormal Hearing, Disequilibrium, Dizziness, Other Nose/Mouth/Throat: absent: As Per HPI, Epistaxis, Nasal Congestion, Nasal Discharge, Nasal Obstruction, Nasal Trauma, Nose Pain, Post Nasal Drip, Sinus Pain, Sinus Pressure, Bleeding Gums, Change in Voice, Dental Pain, Dry Mouth, Dysphagia, Halitosis, Hoarsness, Lip Swelling, Mouth Lesions, Mouth Pain, Odynophagia, Sore Throat, Throat Swelling, Tongue Swelling, Facial Pain, Neck Pain, Neck Mass, Other - Cardiovascular Cardiovascular: absent: As Per HPI, Acrocyanosis, Chest Pain, Chest Pain at Rest, Chest Pain with Activity, Claudication, Diaphoresis, Dyspnea, Dyspnea on Exertion, Edema, Irregular Heart Rhythm, Pain Radiating to Arm/Neck/Jaw, Leg Edema, Leg Ulcers, Lightheadedness, Orthopnea, Palpitations, Paroxysmal Nocturnal Dyspnea, Pedal Edema, Radiating Pain, Rapid Heart Rate, Slow Heart Rate, Syncope, Other - Respiratory Respiratory: absent: As Per HPI, Cough, Dyspnea, Hemoptysis, Dyspnea on Exertion, Wheezing, Snoring, Stridor, Pain on Inspiration, Chest Congestion, Excessive Mucous Production, Change in Mucous Color, Pain with Coughing, Other - Gastrointestinal Gastrointestinal: absent: As Per HPI, Abdominal Pain, Belching, Bloating, Change in Bowel Habits, Change in Stool Character, Coffee Ground Emesis, Constipation, Cramping, Diarrhea, Dyspepsia, Dysphagia, Early Satiety, Excessive Flatus, Fecal Incontinence, Heartburn, Hematemesis, Hematochezia, Loose Stools, Melena, Nausea, Odynophagia, Temesmus, Vomiting, Other - Genitourinary Genitourinary: absent: As Per HPI, Change in Urinary Stream, Difficulty Urina ting, Dysuria, Flank Pain, Hematuria, Pyuria, Nocturia, Urinary Incontinence, Urinary Frequency, Urinary Hesitance, Urinary Urgency, Voiding Freq/Small Amts, Freq UTI, Hx Renal/Bladder Calculi, Hx /Renal Surgery, Bladder Distension, Other - Musculoskeletal Musculoskeletal: As Per HPI - Integumentary Integumentary: absent: As Per HPI, Acne, Alopecia, Bleeding Lesions, Change in Hair, Change in Nails, Change in Pigmentation, Changing Lesions, Dry Skin, Erythema, Furuncle, Hirsutism, Lesions, New Lesions, Non-Healing Lesions, Photosensitivity, Pruritus, Rash, Skin Pain, Skin Ulcer, Sores, Striae, Swelling, Unusual Bruising, Wounds, Jaundice, Other - Neurological Neurological: As Per HPI - Psychiatric Psychiatric: absent: As Per HPI, Abnormal Sleep Pattern, Anhedonia, Anxiety, Auditory Hallucinations, Behavioral Changes, Change in Appetite, Change in Libido, Confusion, Depression, Difficulty Concentrating, Hallucinations, Homicidal Ideation, Hopelessness, Irritability, Memory Loss, Mood Swings, Panic Attacks, Paranoia, Suicidal Ideation, Visual Hallucinations, Tactile Hallucinations, Other - Endocrine Endocrine: absent: As Per HPI, Change in Body Appearance, Change in Libido, Cold Intolorance, Deepening of Voice, Excessive Sweating, Fatigue, Flushing, Heat Intolorance, Increase in Ring/Shoe/Hat Size, Palpitations, Polydipsia, Polyphagia, Polyuria, Other - Hematologic/Lymphatic Hematologic: absent: As Per HPI, Easy Bleeding, Easy Bruising, Lymphadenopathy, Other Past Patient History - Past Medical History & Family History Past Medical History?: Yes - Past Social History Smoking Status: Never Smoked - CARDIAC Hx Cardiac Disorders: Yes Hx Hypercholesterolemia: Yes Hx Hypertension: Yes - PULMONARY Hx Respiratory Disorders: Yes Hx Asthma: Yes Hx Sleep Apnea: Yes (c-pap) - NEUROLOGICAL Hx Paralysis: No Other/Comment: TREMORS LEFT ARM - ENDOCRINE/METABOLIC Hx Diabetes Mellitus Type 2: Yes (borderline just diet) - HEMATOLOGICAL/ONCOLOGICAL Hx Blood Disorders: No Hx Blood Transfusions: No - INTEGUMENTARY Hx Dermatological Problems: No - MUSCULOSKELETAL/RHEUMATOLOGICAL Hx Arthritis: Yes - GASTROINTESTINAL Hx Gastrointestinal Disorders: No - GENITOURINARY/GYNECOLOGICAL Hx Genitourinary Disorders: No - PSYCHIATRIC Hx Psychophysiologic Disorder: No Hx Emotional Abuse: No Hx Physical Abuse: No Hx Substance Use: No - SURGICAL HISTORY Hx Surgeries: No Hx Tubal Ligation: Yes - ANESTHESIA Hx Anesthesia: Yes Hx Anesthesia Reactions: No Hx Malignant Hyperthermia: No Has any member of the family had a problem w/ anesthesia?: No Meds Allergies/Adverse Reactions: Allergies Allergy/AdvReac Type Severity Reaction Status Date / Time No Known Allergies Allergy Verified 06/25/18 14:15 - Medications Medications: Current Medications Acetaminophen (Tylenol 325mg Tab) 325 mg PO Q4 PRN PRN Reason: pain1-3 Aspirin (Ecotrin) 81 mg PO DAILY [facility] Last Admin: 06/27/18 09:34 Dose: 81 mg Bisacodyl (Dulcolax) 5 mg PO DAILY PRN PRN Reason: Constipation Celecoxib (Celebrex) 100 mg PO Q12 [facility] Last Admin: 06/27/18 09:34 Dose: 100 mg Docusate Sodium (Colace) 100 mg PO TID [facility] Last Admin: 06/27/18 17:41 Dose: 100 mg Enoxaparin Sodium (Lovenox) 40 mg SC DAILY [facility]; Protocol Last Admin: 06/27/18 09:35 Dose: 40 mg Ferrous Sulfate (Feosol) 325 mg PO BID [facility] Last Admin: 06/27/18 17:41 Dose: 325 mg Hydromorphone HCl (Dilaudid) 0.5 mg IVP Q10M PRN PRN Reason: Pain, moderate (4-7) Lactated Ringer's (Lactated Ringer's) 1,000 mls @ 125 mls/hr IV .Q8H [facility] Last Admin: 06/27/18 09:49 Dose: Not Given Losartan Potassium (Cozaar) 25 mg PO DAILY [facility] Last Admin: 06/27/18 09:50 Dose: Not Given Metoprolol Succinate (Toprol Xl) 25 mg PO Q12 [facility] Last Admin: 06/27/18 09:50 Dose: Not Given Oxycodone HCl (Oxycontin Extended Release Tab) 10 mg PO Q12 [facility] Stop: 07/10/18 21:01 Last Admin: 06/27/18 09:30 Dose: 10 mg Oxycodone HCl (Oxycodone Immediate Release Tab) 5 mg PO Q4 PRN PRN Reason: pain4-6 Last Admin: 06/27/18 13:52 Dose: 5 mg Pravastatin Sodium (Pravachol) 20 mg PO DAILY [facility] Last Admin: 06/27/18 09:33 Dose: 20 mg Fluticasone/Salmeterol (Advair Diskus 250/50) 1 puff IH Q12 [facility] Last Admin: 06/27/18 09:31 Dose: 1 puff Tramadol HCl (Ultram) 50 mg PO Q4 PRN PRN Reason: pain7-10 Last Admin: 06/27/18 05:01 Dose: 50 mg Physical Exam - Constitutional Appears: Well - Head Exam Head Exam: ATRAUMATIC, NORMAL INSPECTION, NORMOCEPHALIC - Eye Exam Eye Exam: EOMI, Normal appearance, PERRL - ENT Exam ENT Exam: Mucous Membranes Moist, Normal Exam - Neck Exam Neck exam: Positive for: Normal Inspection - Respiratory Exam Respiratory Exam: Clear to Auscultation Bilateral, NORMAL BREATHING PATTERN - Cardiovascular Exam Cardiovascular Exam: REGULAR RHYTHM, +S1, +S2 - GI/Abdominal Exam GI & Abdominal Exam: Normal Bowel Sounds, Soft. absent: Tenderness - Rectal Exam Rectal Exam: Deferred - Extremities Exam Extremities exam: Positive for: normal inspection - Back Exam Back exam: NORMAL INSPECTION - Neurological Exam Neurological exam: Abnormal Gait, Alert, CN II-XII Intact, Oriented x3, Reflexes Normal Additional comments: left arm has a resting tremor with cogwheeling, rigidity and bradykinesia. - Psychiatric Exam Psychiatric exam: Normal Affect, Normal Mood - Skin Skin Exam: Dry, Intact, Normal Color, Warm Results - Vital Signs Recent Vital Signs: Last Vital Signs Temp 98.4 F 06/27/18 16:28 Pulse 83 06/27/18 16:28 Resp 18 06/27/18 16:28 BP 96/60 L 06/27/18 16:28 Pulse Ox 95 06/27/18 16:28 - Labs Result Diagrams: 06/27/18 06:35 06/27/18 06:35 Labs: Laboratory Results - last 24 hr 06/27/18 06/27/18 06/27/18 06:35 06:35 12:19 WBC 14.7 H RBC 3.49 L Hgb 10.7 L D Hct 30.1 L MCV 86.2 MCH 30.6 MCHC 35.5 RDW 12.8 Plt Count 202 MPV 9.9 Neut % (Auto) 82.3 H Lymph % (Auto) 8.2 L [place] % (Auto) 9.4 Eos % (Auto) 0.0 Baso % (Auto) 0.1 Neut # (Auto) 12.1 H Lymph # (Auto) 1.2 [place] # (Auto) 1.4 H Eos # (Auto) 0.0 Baso # (Auto) 0.0 Neutrophils % (Manual) 81 H Lymphocytes % (Manual) 9 L Monocytes % (Manual) 10 Platelet Estimate Normal Sodium 139 Potassium 3.6 Chloride 105 Carbon Dioxide 31 H Anion Gap 7 L BUN 19 H Creatinine 0.9 Est GFR ( Amer) > 60 Est GFR (Non-Af Amer) > 60 Random Glucose 141 H Calcium 8.2 L Urine Color Yellow Urine Clarity Cloudy Urine pH 5.0 Ur Specific [place] 1.028 Urine Protein Negative Urine Glucose (UA) Neg Urine Ketones Negative Urine Blood Negative Urine Nitrate Negative Urine Bilirubin Negative Urine Urobilinogen 0.2-1.0 Ur Leukocyte Esterase Mod Urine RBC (Auto) 3 Urine Microscopic WBC 104 H Ur Squamous Epith Cells 8 H Assessment & Plan (1) Parkinsons disease Assessment and Plan: The symptoms of resting tremor that is initially unilateral with cogwheeling, rigidity and bradykinesia are consistent with Parkinsons disease. The patient's flat facies and affect is also consistent. However, this has been ongoing for a year and can be treated as an outpatient. I recommended that the patient fo llows up with me as an outpatient for a Jair scan and will consider starting Parkinsons medications. I provided my business card and contact info. Thank you for this consultation. Status: Acute Priority: High
[2018-06-27 23:34] VITALS: PULSE 94
[2018-06-28 06:08] LABS: MEAN CELL VOLUME 88.9 fl (81.0-99.0); MEAN CORPUSCULAR HEMOGLOBIN 29.8 pg (27.0-31.0); MEAN CORPUSCULAR HGB CONC 33.5 g/dL (33.0-37.0); RBC 3.37 Mil/uL (3.80-5.20); RED CELL DISTRIBUTION WIDTH 13.2 % (11.5-14.5); WHITE BLOOD COUNT 9.7 K/uL (4.8-10.8)
[2018-06-28 06:37] LABS: BLOOD UREA NITROGEN 19 mg/dl (7-17); CALCIUM 8.3 mg/dL (8.4-10.2); GFR NON-AFRICAN AMERICAN > 60
[2018-06-28 08:14] VITALS: BP 104/63; TEMP 97.9; O2SAT 94
[2018-06-28] MEDS: Fluticasone-Salmeterol 250-50mcg Diskus IH SCH ×2 (08:47→09:08)
[2018-06-28] MEDS: Pravastatin Sodium 20 MG TAB PO SCH (08:48)
[2018-06-28] MEDS: Enoxaparin 40 mg Syringe SC SCH (08:49)
[2018-06-28] MEDS: oxyCODONE 10 mg ER Tab (oxyCONTIN) PO SCH (09:02)
[2018-06-28] MEDS: Metoprolol Succinate 25 mg XL Tab PO SCH (09:09)
--- NOTE | 2018-06-28 10:08 | CP.PCM.DIS ---
Provider - Provider Date of Admission: 06/26/18 15:18 Attending physician: Frank Salas Primary care physician: Dr. Alarcon Consults: Neurology - Dr. Ng Orthopedist - Dr. Azevedo Time Spent in preparation of Discharge (in minutes): 30 Diagnosis - Discharge Diagnosis (1) Knee pain Status: Acute Hospital Course - Lab Results Lab Results: Most Recent Lab Values WBC 9.7 K/uL (4.8-10.8) 06/28/18 05:10 RBC 3.37 Mil/uL (3.80-5.20) L 06/28/18 05:10 Hgb 10.0 g/dL (12.0-16.0) L 06/28/18 05:10 Hct 29.9 % (34.0-47.0) L 06/28/18 05:10 MCV 88.9 fl (81.0-99.0) D 06/28/18 05:10 MCH 29.8 pg (27.0-31.0) 06/28/18 05:10 MCHC 33.5 g/dL (33.0-37.0) 06/28/18 05:10 RDW 13.2 % (11.5-14.5) 06/28/18 05:10 Plt Count 153 K/uL (130-400) 06/28/18 05:10 MPV 9.9 fl (7.2-11.7) 06/27/18 06:35 Neut % (Auto) 82.3 % (50.0-75.0) H 06/27/18 06:35 Lymph % (Auto) 8.2 % (20.0-40.0) L 06/27/18 06:35 [place] % (Auto) 9.4 % (0.0-10.0) 06/27/18 06:35 Eos % (Auto) 0.0 % (0.0-4.0) 06/27/18 06:35 Baso % (Auto) 0.1 % (0.0-2.0) 06/27/18 06:35 Neut # (Auto) 12.1 K/uL (1.8-7.0) H 06/27/18 06:35 Lymph # (Auto) 1.2 K/uL (1.0-4.3) 06/27/18 06:35 [place] # (Auto) 1.4 K/uL (0.0-0.8) H 06/27/18 06:35 Eos # (Auto) 0.0 K/uL (0.0-0.7) 06/27/18 06:35 Baso # (Auto) 0.0 K/uL (0.0-0.2) 06/27/18 06:35 Neutrophils % (Manual) 81 % (42-75) H 06/27/18 06:35 Lymphocytes % (Manual) 9 % (20-50) L 06/27/18 06:35 Monocytes % (Manual) 10 % (0-10) 06/27/18 06:35 Platelet Estimate Normal (NORMAL) 06/27/18 06:35 Sodium 140 mmol/l (132-148) 06/28/18 05:50 Potassium 4.1 MMOL/L (3.6-5.0) 06/28/18 05:50 Chloride 100 mmol/L (98-107) 06/28/18 05:50 Carbon Dioxide 34 mmol/L (22-30) H 06/28/18 05:50 Anion Gap 10 (10-20) 06/28/18 05:50 BUN 19 mg/dl (7-17) H 06/28/18 05:50 Creatinine 0.9 mg/dl (0.7-1.2) 06/28/18 05:50 Est GFR ( Amer) > 60 06/28/18 05:50 Est GFR (Non-Af Amer) > 60 06/28/18 05:50 Random Glucose 169 mg/dL (65-105) H 06/28/18 05:50 Calcium 8.3 mg/dL (8.4-10.2) L 06/28/18 05:50 Urine Color Yellow (YELLOW) 06/27/18 12:19 Urine Clarity Cloudy (Clear) 06/27/18 12:19 Urine pH 5.0 (5.0-8.0) 06/27/18 12:19 Ur Specific [place] 1.028 (1.003-1.030) 06/27/18 12:19 Urine Protein Negative mg/dL (NEGATIVE) 06/27/18 12:19 Urine Glucose (UA) Neg mg/dL (Normal) 06/27/18 12:19 Urine Ketones Negative mg/dL (NEGATIVE) 06/27/18 12:19 Urine Blood Negative (NEGATIVE) 06/27/18 12:19 Urine Nitrate Negative (NEGATIVE) 06/27/18 12:19 Urine Bilirubin Negative (NEGATIVE) 06/27/18 12:19 Urine Urobilinogen 0.2-1.0 mg/dL (0.2-1.0) 06/27/18 12:19 Ur Leukocyte Esterase Mod Donald/uL (Negative) 06/27/18 12:19 Urine RBC (Auto) 3 /hpf (0-3) 06/27/18 12:19 Urine Microscopic WBC 104 /hpf (0-5) H 06/27/18 12:19 Ur Squamous Epith Cells 8 /hpf (0-5) H 06/27/18 12:19 Blood Type A POSITIVE 06/26/18 11:20 Blood Type Confirm A POSITIVE 06/26/18 11:37 Antibody Screen Negative 06/26/18 11:20 BBK History Checked No verified bt 06/26/18 11:20 - Hospital Course Hospital Course: 67 yo female POD 2 s/p L TKR. Nerve block performed prior to surgery and once wore off patient experienced some left knee pain. Patients pain was controlled with pain medication successfully and patient tolerated medications. Patient started on DVT prophylaxis with lovenox POD 1. 3 doses of ancef 1g were given after surgery for prophylaxis. PT/OT was consulted and evaluation was performed and instructed that patient will benefit from continued skilled PT to address deficits and maximize functional independence. Patients UA was performed and evidence of a high level of microscopic WBCs were found in the urine. A Urine C and S was ordered, to be performed prior to discharge from floor. Patients labs were evaluated and low Hgb was noticed, ferrous sulfate started and patient aware of potential side effects including dark stool. Her HTN, HLD, and CAD were all controlled with home medications dispensed while in house. Patient will be discharged to TCU for deconditioning, pain control, and skilled PT. - Date & Time of H&P Date of H&P: 06/28/18 Time of H&P: 10:09 Discharge Exam - Head Exam Head Exam: ATRAUMATIC, NORMAL INSPECTION, NORMOCEPHALIC - Eye Exam Eye Exam: EOMI, Normal appearance, PERRL - ENT Exam ENT Exam: Mucous Membranes Moist, Normal Exam - Neck Exam Neck exam: Normal Inspection - Respiratory Exam Respiratory Exam: Clear to PA & Lateral, NORMAL BREATHING PATTERN - Cardiovascular Exam Cardiovascular Exam: REGULAR RHYTHM, +S1, +S2 - GI/Abdominal Exam GI & Abdominal Exam: Normal Bowel Sounds, Soft - Extremities Exam Extremities exam: normal capillary refill, normal inspection, pedal pulses present - Neurological Exam Neurological exam: Alert, Oriented x3 Additional comments: left arm resting tremor - cogwheeling, rigidity, bradykinesia - Psychiatric Exam Psychiatric exam: Normal Affect, Normal Mood - Skin Skin Exam: Normal Color, Warm Discharge Plan - Follow Up Plan Condition: GOOD Disposition: REHAB FACILITY/REHAB UNIT Clinical Quality Measures - Date & Time of Discharge Summary Date of Discharge Summary: 06/28/18 Time of Discharge Summary: 10:12
--- NOTE | 2018-06-28 13:04 | CP.PCM.PN ---
Subjective - Date & Time of Evaluation Date of Evaluation: 06/28/18 Time of Evaluation: 10:00 - Subjective Subjective: Patient seen and examined OOB to chair comfortable. Pain is well controlled. Has mild nausea due to pain meds. Denies CP/SOB/ADAMS/fever. Objective - Vital Signs/Intake and Output Vital Signs (last 24 hours): Temp Pulse Resp BP Pulse Ox 97.9 F 94 H 18 104/63 94 L 06/28/18 08:14 06/28/18 08:14 06/28/18 08:14 06/28/18 08:14 06/28/18 08:14 - Medications Medications: Current Medications Acetaminophen (Tylenol 325mg Tab) 325 mg PO Q4 PRN PRN Reason: pain1-3 Aspirin (Ecotrin) 81 mg PO DAILY [facility] Last Admin: 06/28/18 08:49 Dose: 81 mg Bisacodyl (Dulcolax) 5 mg PO DAILY PRN PRN Reason: Constipation Celecoxib (Celebrex) 100 mg PO Q12 [facility] Last Admin: 06/28/18 08:47 Dose: 100 mg Docusate Sodium (Colace) 100 mg PO TID [facility] Last Admin: 06/28/18 08:48 Dose: 100 mg Enoxaparin Sodium (Lovenox) 40 mg SC DAILY [facility]; Protocol Last Admin: 06/28/18 08:49 Dose: 40 mg Ferrous Sulfate (Feosol) 325 mg PO BID [facility] Last Admin: 06/28/18 08:47 Dose: 325 mg Hydromorphone HCl (Dilaudid) 0.5 mg IVP Q10M PRN PRN Reason: Pain, moderate (4-7) Lactated Ringer's (Lactated Ringer's) 1,000 mls @ 125 mls/hr IV .Q8H [facility] Last Admin: 06/27/18 09:49 Dose: Not Given Ceftriaxone Sodium 1 gm/ (Sodium Chloride) 100 mls @ 100 mls/hr IVPB DAILY [facility]; Protocol Losartan Potassium (Cozaar) 25 mg PO DAILY [facility] Last Admin: 06/27/18 09:50 Dose: Not Given Metoprolol Succinate (Toprol Xl) 25 mg PO Q12 [facility] Last Admin: 06/27/18 22:10 Dose: Not Given Oxycodone HCl (Oxycontin Extended Release Tab) 10 mg PO Q12 [facility] Stop: 07/10/18 21:01 Last Admin: 06/28/18 09:02 Dose: 10 mg Oxycodone HCl (Oxycodone Immediate Release Tab) 5 mg PO Q4 PRN PRN Reason: pain4-6 Last Admin: 06/27/18 13:52 Dose: 5 mg Pravastatin Sodium (Pravachol) 20 mg PO DAILY [facility] Last Admin: 06/28/18 08:48 Dose: 20 mg Fluticasone/Salmeterol (Advair Diskus 250/50) 1 puff IH Q12 [facility] Last Admin: 06/28/18 08:47 Dose: 1 puff Tramadol HCl (Ultram) 50 mg PO Q4 PRN PRN Reason: pain7-10 Last Admin: 06/28/18 05:53 Dose: 50 mg - Labs Labs: 06/28/18 05:10 06/28/18 05:50 - Extremities Exam Additional comments: L knee: Dressings CDI, Dressings removed revealing wound CDI with laverne, no drainage mild swelling and tenderness 2nd to surgery sensation intact SP/DP/TN motor intact EHL/FHL/TA/G pedal pulses intact comps soft NT b/l Assessment and Plan (1) Osteoarthritis of left knee Assessment & Plan: POD #2 s/p L TKA doing well -PT/OT WBAT -DVT ppx -Dressings changed -orthopedically stable for discharge -f/u in office within 7-10 days -above d/w Dr. Azevedo in agreement Status: Acute
[2018-06-28] MEDS: oxyCODONE 5 mg Immediate Release Tab PO PRN (14:38)
[2018-06-28] MEDS: Lactated Ringer's 1,000 ML IV SCH (14:41)
== END 2018-06-28 15:15 | DRG 470 ==
LOC: H.OPSURG 10:08 → H.MEDSURG1 15:18
PROVIDERS: ADMIT Hospitalist; ATTEND Hospitalist
PROC: 3E02340 Introduction of Influenza Vaccine into Muscle, Percutaneous Approach (ICD-10-PCS; 2018-06-26)
PROC: 0SRD0J9 Replacement of Left Knee Joint with Synthetic Substitute, Cemented, Open Approach (ICD-10-PCS; principal; 2018-06-26 15:25)
DX: M17.12 Unilateral primary osteoarthritis, left knee (principal); D62 Acute posthemorrhagic anemia; G20 Parkinson's disease; E86.1 Hypovolemia; I10 Essential (primary) hypertension; I25.10 Atherosclerotic heart disease of native coronary artery without angina pectoris; J45.20 Mild intermittent asthma, uncomplicated; E78.5 Hyperlipidemia, unspecified; E78.00 Pure hypercholesterolemia, unspecified; G47.30 Sleep apnea, unspecified; Z23 Encounter for immunization

== ENCOUNTER 2018-06-28 13:17 | Inpatient (IN) | payer OTHER, BC ==
[2018-06-28 15:39] VITALS: BMI 33.3
--- NOTE | 2018-06-28 17:07 | CP.PCM.CON ---
History of Present Illness - History of Present Illness History of Present Illness: Dr Bustillos PMR consultation on Gerri Wolf, born 1950 who has been admitted to TCU following a left TKR. POD #3 now. Pain is fairly well controlled Noted to have a tremor, resting, on the L>R hand. Masked facies, + cogwheeling on the right worse than the left and seborrhaic dermatitis. This consistent with Parkinson's disease. I discussed this in detail with Tanisha, a nurse here and her daughter. Review of Systems - Constitutional Constitutional: absent: Anorexia - EENT Eyes: absent: Change in Vision Ears: absent: Ear Discharge, Ear Pain Nose/Mouth/Throat: absent: Nasal Congestion - Cardiovascular Cardiovascular: absent: Chest Pain - Respiratory Respiratory: absent: Dyspnea, Hemoptysis - Gastrointestinal Gastrointestinal: Constipation - Musculoskeletal Musculoskeletal: absent: Back Pain - Integumentary Integumentary: absent: Bleeding Lesions (has left knee incision) - Neurological Neurological: Abnormal Movements (resting tremor). absent: Burning Sensations, Convulsions, Dizziness, Vertigo Past Patient History - Past Medical History & Family History Past Medical History?: Yes - Past Social History Smoking Status: Never Smoked Alcohol: None Drugs: Denies Home Situation {Lives}: With Family - CARDIAC Hx Cardiac Disorders: Yes Hx Hypercholesterolemia: Yes Hx Hypertension: Yes - PULMONARY Hx Respiratory Disorders: Yes Hx Asthma: Yes Hx Sleep Apnea: Yes (c-pap) - NEUROLOGICAL Hx Paralysis: No Other/Comment: TREMORS LEFT ARM - ENDOCRINE/METABOLIC Hx Diabetes Mellitus Type 2: Yes (borderline just diet) - HEMATOLOGICAL/ONCOLOGICAL Hx AIDS: No Hx Human Immunodeficiency Virus (HIV): No - INTEGUMENTARY Hx Dermatological Problems: No - MUSCULOSKELETAL/RHEUMATOLOGICAL Hx Falls: No - GASTROINTESTINAL Hx Gastrointestinal Disorders: No - GENITOURINARY/GYNECOLOGICAL Hx Genitourinary Disorders: No - PSYCHIATRIC Hx Substance Use: No - SURGICAL HISTORY Hx Surgeries: No Hx Tubal Ligation: Yes - ANESTHESIA Hx Anesthesia: Yes Hx Anesthesia Reactions: No Hx Malignant Hyperthermia: No Meds Allergies/Adverse Reactions: Allergies Allergy/AdvReac Type Severity Reaction Status Date / Time No Known Allergies Allergy Verified 06/28/18 13:31 - Medications Medications: Current Medications Acetaminophen (Tylenol 325mg Tab) 650 mg PO Q6 PRN PRN Reason: Fever >100.4 F Aspirin (Ecotrin) 81 mg PO DAILY [facility] Bisacodyl (Dulcolax) 5 mg PO DAILY PRN PRN Reason: Constipation Celecoxib (Celebrex) 100 mg PO Q12 [facility] Docusate Sodium (Colace) 100 mg PO TID [facility] Enoxaparin Sodium (Lovenox) 40 mg SC DAILY [facility]; Protocol Ferrous Sulfate (Feosol) 325 mg PO BID [facility] Ceftriaxone Sodium 1 gm/ (Sodium Chloride) 100 mls @ 100 mls/hr IVPB DAILY [facility] Losartan Potassium (Cozaar) 25 mg PO DAILY [facility] Metoprolol Succinate (Toprol Xl) 25 mg PO Q12 [facility] Ondansetron HCl (Zofran Inj) 4 mg IVP Q6 PRN PRN Reason: Nausea/Vomiting Oxycodone HCl (Oxycodone Immediate Release Tab) 5 mg PO Q4 PRN PRN Reason: pain4-6 Oxycodone HCl (Oxycontin Extended Release Tab) 10 mg PO Q12 [facility] Stop: 07/01/18 21:01 Pravastatin Sodium (Pravachol) 20 mg PO DAILY [facility] Fluticasone/Salmeterol (Advair Diskus 250/50) 1 puff IH Q12 [facility] Tramadol HCl (Ultram) 50 mg PO Q4 PRN PRN Reason: pain7-10 Physical Exam - Constitutional Appears: Non-toxic - Head Exam Head Exam: ATRAUMATIC, NORMAL INSPECTION, NORMOCEPHALIC Assessment & Plan - Assessment and Plan (Free Text) Plan: 67 year old female s/p left TKR POD #3 Appears to have Parkinson's disease that had not, as of yet, been diagnosed. This may affect her rehab and overall function. At the end of the TCU she may benefit from an acute care stay as well Pain medications to help with function bowel regimen to prevent constipation DVT prophylaxis, has venodyne and LMWH. continue current care
[2018-06-28] MEDS: Fluticasone-Salmeterol 250-50mcg Diskus IH SCH ×2 (17:21→21:12)
[2018-06-28] MEDS: oxyCODONE 10 mg ER Tab (oxyCONTIN) PO SCH (21:11)
[2018-06-28] MEDS: Metoprolol Succinate 25 mg XL Tab PO SCH (23:43)
[2018-06-29] MEDS: oxyCODONE 5 mg Immediate Release Tab PO PRN ×2 (06:28→18:10)
[2018-06-29] MEDS: Fluticasone-Salmeterol 250-50mcg Diskus IH SCH ×2 (08:37→22:02)
[2018-06-29] MEDS: oxyCODONE 10 mg ER Tab (oxyCONTIN) PO SCH ×2 (08:38→22:01)
[2018-06-29] MEDS: Enoxaparin 40 mg Syringe SC SCH (08:38)
[2018-06-29] MEDS: Pravastatin Sodium 20 MG TAB PO SCH (08:39)
[2018-06-29] MEDS: Metoprolol Succinate 25 mg XL Tab PO SCH ×2 (08:39→22:02)
[2018-06-29] MEDS ORDERED: cefTRIAXone IV 1 gm in Dextros 50 ML BAG IVPB SCH (09:00)
--- NOTE | 2018-06-29 09:55 | CP.PCM.PN ---
Subjective - Date & Time of Evaluation Date of Evaluation: 06/29/18 Time of Evaluation: 09:52 - Subjective Subjective: Patient wiht daughter at bedside. COmplains of knee pain. C/o constipation. Denies dysuria. Denies CP?sob/dizziness Objective - Vital Signs/Intake and Output Vital Signs (last 24 hours): Temp Pulse Resp BP Pulse Ox 98.2 F 95 H 20 120/64 97 06/29/18 08:24 06/29/18 08:39 06/29/18 08:24 06/29/18 08:39 06/29/18 08:24 - Medications Medications: Current Medications Acetaminophen (Tylenol 325mg Tab) 650 mg PO Q6 PRN PRN Reason: Fever >100.4 F Aspirin (Ecotrin) 81 mg PO DAILY [facility] Last Admin: 06/29/18 08:38 Dose: 81 mg Bisacodyl (Dulcolax) 5 mg PO DAILY PRN PRN Reason: Constipation Celecoxib (Celebrex) 100 mg PO Q12 [facility] Last Admin: 06/29/18 08:37 Dose: 100 mg Docusate Sodium (Colace) 100 mg PO TID [facility] Last Admin: 06/29/18 08:37 Dose: 100 mg Enoxaparin Sodium (Lovenox) 40 mg SC DAILY [facility]; Protocol Last Admin: 06/29/18 08:38 Dose: 40 mg Ferrous Sulfate (Feosol) 325 mg PO BID [facility] Last Admin: 06/29/18 08:38 Dose: 325 mg Ceftriaxone Sodium 1 gm/ (Sodium Chloride) 100 mls @ 100 mls/hr IVPB DAILY@1300 [facility] Losartan Potassium (Cozaar) 25 mg PO DAILY [facility] Last Admin: 06/29/18 08:38 Dose: 25 mg Metoprolol Succinate (Toprol Xl) 25 mg PO Q12 [facility] Last Admin: 06/29/18 08:39 Dose: 25 mg Ondansetron HCl (Zofran Inj) 4 mg IVP Q6 PRN PRN Reason: Nausea/Vomiting Oxycodone HCl (Oxycodone Immediate Release Tab) 5 mg PO Q4 PRN PRN Reason: pain4-6 Last Admin: 06/29/18 06:28 Dose: 5 mg Oxycodone HCl (Oxycontin Extended Release Tab) 10 mg PO Q12 [facility] Stop: 07/01/18 21:01 Last Admin: 06/29/18 08:38 Dose: 10 mg Pravastatin Sodium (Pravachol) 20 mg PO DAILY [facility] Last Admin: 06/29/18 08:39 Dose: 20 mg Fluticasone/Salmeterol (Advair Diskus 250/50) 1 puff IH Q12 [facility] Last Admin: 06/29/18 08:37 Dose: 1 puff Tramadol HCl (Ultram) 50 mg PO Q4 PRN PRN Reason: pain7-10 - Extremities Exam Additional comments: Left knee: mild incisional erythema. Dry. Calves osft NT neg homans +ROM ankle/toes, sensation intact +DP/PT pulses Assessment and Plan (1) Osteoarthritis of left knee Assessment & Plan: s/p TKR incisional erythema: patient already started on rocephin for UTI, so this will cover for skin as well, will monitor will see if patient responds to dulcolax PT/OT VTE proph orthopedically stable d/w Dr. Azevedo, agrees with above Status: Acute
--- NOTE | 2018-06-29 13:27 | CP.PCM.HP ---
History of Present Illness - History of Present Illness History of Present Illness: 67 yo female with history of HTN and OA had Left TKR 06/26/18 after failing conservative management. She did well post-op then transferred to TCU on 06/28/18 for therapy. She was found to have UTI and was started on Rocephin 1gm IV daily on 06/28/18. Present on Admission - Present on Admission Any Indicators Present on Admission: No History of DVT/PE: No History of Uncontrolled Diabetes: No Urinary Catheter: No Decubitus Ulcer Present: No Review of Systems - Review of Systems All systems: reviewed and no additional remarkable complaints except (aside from those mentioned above, 12 point system review were negative by me) Past Patient History - Past Medical History & Family History Past Medical History?: Yes - Past Social History Smoking Status: Never Smoked Alcohol: None Drugs: Denies Home Situation {Lives}: With Family - CARDIAC Hx Cardiac Disorders: Yes Hx Hypercholesterolemia: Yes Hx Hypertension: Yes - PULMONARY Hx Respiratory Disorders: Yes Hx Asthma: Yes Hx Sleep Apnea: Yes (c-pap) - NEUROLOGICAL Hx Paralysis: No Other/Comment: TREMORS LEFT ARM - ENDOCRINE/METABOLIC Hx Diabetes Mellitus Type 2: Yes (borderline just diet) - HEMATOLOGICAL/ONCOLOGICAL Hx AIDS: No Hx Human Immunodeficiency Virus (HIV): No - INTEGUMENTARY Hx Dermatological Problems: No - MUSCULOSKELETAL/RHEUMATOLOGICAL Hx Falls: No - GASTROINTESTINAL Hx Gastrointestinal Disorders: No - GENITOURINARY/GYNECOLOGICAL Hx Genitourinary Disorders: No - PSYCHIATRIC Hx Substance Use: No - SURGICAL HISTORY Hx Surgeries: No Hx Tubal Ligation: Yes - ANESTHESIA Hx Anesthesia: Yes Hx Anesthesia Reactions: No Hx Malignant Hyperthermia: No Meds Allergies/Adverse Reactions: Allergies Allergy/AdvReac Type Severity Reaction Status Date / Time No Known Allergies Allergy Verified 06/28/18 13:31 Physical Exam - Constitutional Appears: No Acute Distress - Head Exam Head Exam: ATRAUMATIC - Eye Exam Eye Exam: absent: Scleral icterus - ENT Exam ENT Exam: Mucous Membranes Moist - Neck Exam Neck exam: Negative for: Meningismus - Respiratory Exam Respiratory Exam: absent: Rales, Rhonchi, Wheezes, Respiratory Distress - Cardiovascular Exam Cardiovascular Exam: REGULAR RHYTHM, +S1, +S2 - GI/Abdominal Exam GI & Abdominal Exam: Soft. absent: Tenderness - Rectal Exam Rectal Exam: Deferred - Extremities Exam Extremities exam: Negative for: full ROM (limited ROM on left knee) - Back Exam Back exam: NORMAL INSPECTION - Neurological Exam Neurological exam: Alert, Oriented x3 - Psychiatric Exam Psychiatric exam: Normal Affect - Skin Skin Exam: Dry, Intact Results - Vital Signs Recent Vital Signs: Last Vital Signs Temp 98.2 F 06/29/18 08:24 Pulse 95 H 06/29/18 08:39 Resp 20 06/29/18 08:24 BP 120/64 06/29/18 08:39 Pulse Ox 97 06/29/18 08:24 Assessment & Plan - Assessment and Plan (Free Text) Assessment: 67 yo female with history of HTN and OA had Left TKR 06/26/18 after failing conservative management. She did well post-op then transferred to TCU on 06/28/18 for therapy. She was found to have UTI and was started on Rocephin 1gm IV daily on 06/28/18. 1. S/P Left TKR 3rd post op still with pain when moving during therapy physiatry and pain management consult with Dr Bustillos 2. UTI 2nd day of IV Rocephin repeat urinalysis in am 3. HTN BP stable continue Losartan and Metoprolol 4. DVT prophylaxis Lovenox 40mg SC daily
--- NOTE | 2018-06-29 16:45 | CP.PCM.CON ---
History of Present Illness - History of Present Illness History of Present Illness: Neurology Consultation Note: Mrs. Wolf is a 67-year-old woman with a past medical history of CAD, arthritis, HLD, and HTN, who had a left total knee replacement a few days ago, and was reported to have a tremor of the left arm. The patient has had this tremor for over a year and it gets worse with stress sometimes. I saw her when she was an inpatient and believe she has Parkinson's disease, but wanted to confirm with a Jair scan as an outpatient. Review of Systems - Constitutional Constitutional: absent: As Per HPI, Anorexia, Chills, Daytime Sleepiness, E xcessive Sweating, Fatigue, Fever, Frequent Falls, Headache, Increased Appetite, Lethargy, Malaise, Night Sweats, Snoring, Sleep Apnea, Weight Gain, Weight Loss, Weakness, Other - EENT Eyes: absent: As Per HPI, Blind Spots, Blurred Vision, Change in Vision, Decreased Night Vision, Diplopia, Discharge, Dry Eye, Exophthalmos, Floaters, Irritation, Itchy Eyes, Loss of Peripheral Vision, Pain, Photophobia, Requires Corrective Lenses, Sees Flashes, Spots in Vision, Tunnel Vision, Other Visual Disturbances, Loss of Vision, Other Ears: absent: As Per HPI, Decreased Hearing, Ear Discharge, Ear Pain, Tinnitus, Abnormal Hearing, Disequilibrium, Dizziness, Other Nose/Mouth/Throat: absent: As Per HPI, Epistaxis, Nasal Congestion, Nasal Discharge, Nasal Obstruction, Nasal Trauma, Nose Pain, Post Nasal Drip, Sinus Pain, Sinus Pressure, Bleeding Gums, Change in Voice, Dental Pain, Dry Mouth, Dysphagia, Halitosis, Hoarsness, Lip Swelling, Mouth Lesions, Mouth Pain, Odynophagia, Sore Throat, Throat Swelling, Tongue Swelling, Facial Pain, Neck Pain, Neck Mass, Other - Cardiovascular Cardiovascular: absent: As Per HPI, Acrocyanosis, Chest Pain, Chest Pain at Rest, Chest Pain with Activity, Claudication, Diaphoresis, Dyspnea, Dyspnea on Exertion, Edema, Irregular Heart Rhythm, Pain Radiating to Arm/Neck/Jaw, Leg Edema, Leg Ulcers, Lightheadedness, Orthopnea, Palpitations, Paroxysmal Nocturnal Dyspnea, Pedal Edema, Radiating Pain, Rapid Heart Rate, Slow Heart Rate, Syncope, Other - Respiratory Respiratory: absent: As Per HPI, Cough, Dyspnea, Hemoptysis, Dyspnea on Exertion, Wheezing, Snoring, Stridor, Pain on Inspiration, Chest Congestion, Excessive Mucous Production, Change in Mucous Color, Pain with Coughing, Other - Gastrointestinal Gastrointestinal: absent: As Per HPI, Abdominal Pain, Belching, Bloating, Change in Bowel Habits, Change in Stool Character, Coffee Ground Emesis, Constipation, Cramping, Diarrhea, Dyspepsia, Dysphagia, Early Satiety, Excessive Flatus, Fecal Incontinence, Heartburn, Hematemesis, Hematochezia, Loose Stools, Melena, Nausea, Odynophagia, Temesmus, Vomiting, Other - Genitourinary Additional comments: recently diagnosed with UTI - Musculoskeletal Musculoskeletal: As Per HPI - Integumentary Integumentary: absent: As Per HPI, Acne, Alopecia, Bleeding Lesions, Change in Hair, Change in Nails, Change in Pigmentation, Changing Lesions, Dry Skin, Erythema, Furuncle, Hirsutism, Lesions, New Lesions, Non-Healing Lesions, Photosensitivity, Pruritus, Rash, Skin Pain, Skin Ulcer, Sores, Striae, Swelling, Unusual Bruising, Wounds, Jaundice, Other - Neurological Neurological: As Per HPI - Psychiatric Psychiatric: absent: As Per HPI, Abnormal Sleep Pattern, Anhedonia, Anxiety, Auditory Hallucinations, Behavioral Changes, Change in Appetite, Change in Libi do, Confusion, Depression, Difficulty Concentrating, Hallucinations, Homicidal Ideation, Hopelessness, Irritability, Memory Loss, Mood Swings, Panic Attacks, Paranoia, Suicidal Ideation, Visual Hallucinations, Tactile Hallucinations, Other - Endocrine Endocrine: absent: As Per HPI, Change in Body Appearance, Change in Libido, Cold Intolorance, Deepening of Voice, Excessive Sweating, Fatigue, Flushing, Heat Intolorance, Increase in Ring/Shoe/Hat Size, Palpitations, Polydipsia, Polyphagia, Polyuria, Other - Hematologic/Lymphatic Hematologic: absent: As Per HPI, Easy Bleeding, Easy Bruising, Lymphadenopathy, Other Past Patient History - Past Medical History & Family History Past Medical History?: Yes - Past Social History Smoking Status: Never Smoked Alcohol: None Drugs: Denies Home Situation {Lives}: With Family - CARDIAC Hx Cardiac Disorders: Yes Hx Hypercholesterolemia: Yes Hx Hypertension: Yes - PULMONARY Hx Respiratory Disorders: Yes Hx Asthma: Yes Hx Sleep Apnea: Yes (c-pap) - NEUROLOGICAL Hx Paralysis: No Other/Comment: TREMORS LEFT ARM - ENDOCRINE/METABOLIC Hx Diabetes Mellitus Type 2: Yes (borderline just diet) - HEMATOLOGICAL/ONCOLOGICAL Hx AIDS: No Hx Human Immunodeficiency Virus (HIV): No - INTEGUMENTARY Hx Dermatological Problems: No - MUSCULOSKELETAL/RHEUMATOLOGICAL Hx Falls: No - GASTROINTESTINAL Hx Gastrointestinal Disorders: No - GENITOURINARY/GYNECOLOGICAL Hx Genitourinary Disorders: No - PSYCHIATRIC Hx Substance Use: No - SURGICAL HISTORY Hx Surgeries: No Hx Tubal Ligation: Yes - ANESTHESIA Hx Anesthesia: Yes Hx Anesthesia Reactions: No Hx Malignant Hyperthermia: No Meds Allergies/Adverse Reactions: Allergies Allergy/AdvReac Type Severity Reaction Status Date / Time No Known Allergies Allergy Verified 06/28/18 13:31 - Medications Medications: Current Medications Acetaminophen (Tylenol 325mg Tab) 650 mg PO Q6 PRN PRN Reason: Fever >100.4 F Aspirin (Ecotrin) 81 mg PO DAILY [facility] Last Admin: 06/29/18 08:38 Dose: 81 mg Bisacodyl (Dulcolax) 5 mg PO DAILY PRN PRN Reason: Constipation Celecoxib (Celebrex) 100 mg PO Q12 [facility] Last Admin: 06/29/18 08:37 Dose: 100 mg Docusate Sodium (Colace) 100 mg PO TID [facility] Last Admin: 06/29/18 12:47 Dose: 100 mg Enoxaparin Sodium (Lovenox) 40 mg SC DAILY [facility]; Protocol Last Admin: 06/29/18 08:38 Dose: 40 mg Ferrous Sulfate (Feosol) 325 mg PO BID [facility] Last Admin: 06/29/18 08:38 Dose: 325 mg Ceftriaxone Sodium 1 gm/ (Sodium Chloride) 100 mls @ 100 mls/hr IVPB DAILY@1300 [facility] Last Admin: 06/29/18 12:48 Dose: 100 mls/hr Losartan Potassium (Cozaar) 25 mg PO DAILY [facility] Last Admin: 06/29/18 08:38 Dose: 25 mg Metoprolol Succinate (Toprol Xl) 25 mg PO Q12 [facility] Last Admin: 06/29/18 08:39 Dose: 25 mg Ondansetron HCl (Zofran Inj) 4 mg IVP Q6 PRN PRN Reason: Nausea/Vomiting Oxycodone HCl (Oxycodone Immediate Release Tab) 5 mg PO Q4 PRN PRN Reason: pain4-6 Last Admin: 06/29/18 06:28 Dose: 5 mg Oxycodone HCl (Oxycontin Extended Release Tab) 10 mg PO Q12 [facility] Stop: 07/01/18 21:01 Last Admin: 06/29/18 08:38 Dose: 10 mg Pravastatin Sodium (Pravachol) 20 mg PO DAILY [facility] Last Admin: 06/29/18 08:39 Dose: 20 mg Fluticasone/Salmeterol (Advair Diskus 250/50) 1 puff IH Q12 [facility] Last Admin: 06/29/18 08:37 Dose: 1 puff Tramadol HCl (Ultram) 50 mg PO Q4 PRN PRN Reason: pain7-10 Last Admin: 06/29/18 14:17 Dose: 50 mg Physical Exam - Constitutional Appears: Well - Head Exam Head Exam: ATRAUMATIC, NORMAL INSPECTION, NORMOCEPHALIC - Eye Exam Eye Exam: EOMI, Normal appearance, PERRL - ENT Exam ENT Exam: Mucous Membranes Moist, Normal Exam - Neck Exam Neck exam: Positive for: Normal Inspection - Respiratory Exam Respiratory Exam: Clear to Auscultation Bilateral, NORMAL BREATHING PATTERN - Cardiovascular Exam Cardiovascular Exam: REGULAR RHYTHM, +S1, +S2 - GI/Abdominal Exam GI & Abdominal Exam: Normal Bowel Sounds, Soft. absent: Tenderness - Rectal Exam Rectal Exam: Deferred - Neurological Exam Neurological exam: Abnormal Gait, Alert, CN II-XII Intact, Oriented x3, Reflexes Normal Additional comments: Cogwheeling, rigidity, and bradykinesia noted mostly of the left arm. - Psychiatric Exam Psychiatric exam: Normal Affect, Normal Mood - Skin Skin Exam: Dry, Intact, Normal Color, Warm Results - Vital Signs Recent Vital Signs: Last Vital Signs Temp 97.7 F 06/29/18 16:28 Pulse 88 06/29/18 16:28 Resp 20 06/29/18 16:28 BP 129/61 06/29/18 16:28 Pulse Ox 94 L 06/29/18 16:28 Assessment & Plan (1) Parkinsons disease Assessment and Plan: Will start Sinemet 25/100 mg TID, while the patient is in the TCU and follow her for response. Will then obtain the Jair scan as an outpatient and follow up in the office. Status: Acute Priority: High
[2018-06-29] MEDS: Bisacodyl 5mg EC Tab PO PRN (17:31)
--- NOTE | 2018-06-29 19:01 | CP.PCM.PN ---
Subjective - Date & Time of Evaluation Date of Evaluation: 06/29/18 Time of Evaluation: 19:00 - Subjective Subjective: Patient seen in room had a great day in therapies today pain is controlled Neuro consult appreciated and it looks like she is more animiated after her first dose of Sinemet still with left resting tremor continue current care on CPM Objective - Vital Signs/Intake and Output Vital Signs (last 24 hours): Temp Pulse Resp BP Pulse Ox 97.7 F 88 20 129/61 94 L 06/29/18 16:28 06/29/18 16:28 06/29/18 16:28 06/29/18 16:28 06/29/18 16:28 - Medications Medications: Current Medications Acetaminophen (Tylenol 325mg Tab) 650 mg PO Q6 PRN PRN Reason: Fever >100.4 F Aspirin (Ecotrin) 81 mg PO DAILY [facility] Last Admin: 06/29/18 08:38 Dose: 81 mg Bisacodyl (Dulcolax) 5 mg PO DAILY PRN PRN Reason: Constipation Last Admin: 06/29/18 17:31 Dose: 5 mg Carbidopa/Levodopa (Sinemet) 1 tab PO TID [facility] Last Admin: 06/29/18 17:32 Dose: 1 tab Celecoxib (Celebrex) 100 mg PO Q12 [facility] Last Admin: 06/29/18 08:37 Dose: 100 mg Docusate Sodium (Colace) 100 mg PO TID [facility] Last Admin: 06/29/18 17:31 Dose: 100 mg Enoxaparin Sodium (Lovenox) 40 mg SC DAILY [facility]; Protocol Last Admin: 06/29/18 08:38 Dose: 40 mg Ferrous Sulfate (Feosol) 325 mg PO BID [facility] Last Admin: 06/29/18 17:32 Dose: 325 mg Ceftriaxone Sodium 1 gm/ (Sodium Chloride) 100 mls @ 100 mls/hr IVPB DAILY@1300 [facility] Last Admin: 06/29/18 12:48 Dose: 100 mls/hr Losartan Potassium (Cozaar) 25 mg PO DAILY [facility] Last Admin: 06/29/18 08:38 Dose: 25 mg Metoprolol Succinate (Toprol Xl) 25 mg PO Q12 [facility] Last Admin: 06/29/18 08:39 Dose: 25 mg Ondansetron HCl (Zofran Inj) 4 mg IVP Q6 PRN PRN Reason: Nausea/Vomiting Oxycodone HCl (Oxycodone Immediate Release Tab) 5 mg PO Q4 PRN PRN Reason: pain4-6 Last Admin: 06/29/18 18:10 Dose: 5 mg Oxycodone HCl (Oxycontin Extended Release Tab) 10 mg PO Q12 [facility] Stop: 07/01/18 21:01 Last Admin: 06/29/18 08:38 Dose: 10 mg Pravastatin Sodium (Pravachol) 20 mg PO DAILY [facility] Last Admin: 06/29/18 08:39 Dose: 20 mg Fluticasone/Salmeterol (Advair Diskus 250/50) 1 puff IH Q12 [facility] Last Admin: 06/29/18 08:37 Dose: 1 puff Tramadol HCl (Ultram) 50 mg PO Q4 PRN PRN Reason: pain7-10 Last Admin: 06/29/18 14:17 Dose: 50 mg
[2018-06-30] MEDS: Enoxaparin 40 mg Syringe SC SCH (10:06)
[2018-06-30] MEDS: Bisacodyl 5mg EC Tab PO PRN (10:07)
[2018-06-30] MEDS: Metoprolol Succinate 25 mg XL Tab PO SCH ×2 (10:08→22:06)
[2018-06-30] MEDS: Fluticasone-Salmeterol 250-50mcg Diskus IH SCH ×2 (10:09→22:06)
[2018-06-30] MEDS: Pravastatin Sodium 20 MG TAB PO SCH (10:13)
[2018-06-30] MEDS: oxyCODONE 10 mg ER Tab (oxyCONTIN) PO SCH ×2 (10:14→22:06)
[2018-06-30] MEDS: oxyCODONE 5 mg Immediate Release Tab PO PRN (18:16)
[2018-07-01] MEDS: oxyCODONE 5 mg Immediate Release Tab PO PRN ×2 (06:23→17:54)
[2018-07-01] MEDS: Fluticasone-Salmeterol 250-50mcg Diskus IH SCH ×2 (09:11→21:52)
[2018-07-01] MEDS: Enoxaparin 40 mg Syringe SC SCH (09:11)
[2018-07-01] MEDS: oxyCODONE 10 mg ER Tab (oxyCONTIN) PO SCH ×2 (09:12→21:52)
[2018-07-01] MEDS: Metoprolol Succinate 25 mg XL Tab PO SCH ×2 (09:12→21:54)
[2018-07-01] MEDS: Pravastatin Sodium 20 MG TAB PO SCH (16:50)
[2018-07-02] MEDS: oxyCODONE 5 mg Immediate Release Tab PO PRN ×2 (06:35→18:26)
[2018-07-02] MEDS: Fluticasone-Salmeterol 250-50mcg Diskus IH SCH ×2 (08:52→20:54)
[2018-07-02] MEDS: oxyCODONE 10 mg ER Tab (oxyCONTIN) PO SCH ×2 (08:53→20:52)
[2018-07-02] MEDS: Metoprolol Succinate 25 mg XL Tab PO SCH ×2 (08:53→20:53)
[2018-07-02] MEDS: Pravastatin Sodium 20 MG TAB PO SCH (08:53)
--- NOTE | 2018-07-02 09:47 | CP.PCM.PN ---
Subjective - Date & Time of Evaluation Date of Evaluation: 07/02/18 Time of Evaluation: 07:20 - Subjective Subjective: Patient seen and examined at bedside comfortable. Pain continues to improve. Tremors have improved. No new complaints. Juany PT well. Denies CP/SOB/fever/ADAMS. Objective - Vital Signs/Intake and Output Vital Signs (last 24 hours): Temp Pulse Resp BP Pulse Ox 98.1 F 72 20 131/67 97 07/01/18 19:18 07/02/18 08:53 07/01/18 19:18 07/02/18 08:53 07/01/18 19:18 - Medications Medications: Current Medications Acetaminophen (Tylenol 325mg Tab) 650 mg PO Q6 PRN PRN Reason: Fever >100.4 F Aspirin (Ecotrin) 81 mg PO DAILY [facility] Last Admin: 07/02/18 08:53 Dose: 81 mg Bisacodyl (Dulcolax) 5 mg PO DAILY PRN PRN Reason: Constipation Last Admin: 06/30/18 10:07 Dose: 5 mg Carbidopa/Levodopa (Sinemet) 1 tab PO TID [facility] Last Admin: 07/02/18 08:53 Dose: 1 tab Celecoxib (Celebrex) 100 mg PO Q12 [facility] Last Admin: 07/02/18 08:52 Dose: 100 mg Docusate Sodium (Colace) 100 mg PO TID [facility] Last Admin: 07/02/18 08:52 Dose: 100 mg Enoxaparin Sodium (Lovenox) 40 mg SC DAILY [facility]; Protocol Last Admin: 07/01/18 09:11 Dose: 40 mg Ferrous Sulfate (Feosol) 325 mg PO BID [facility] Last Admin: 07/02/18 08:53 Dose: 325 mg Ceftriaxone Sodium 1 gm/ (Sodium Chloride) 100 mls @ 100 mls/hr IVPB DAILY@1300 [facility] Last Admin: 07/01/18 12:09 Dose: 100 mls/hr Losartan Potassium (Cozaar) 25 mg PO DAILY [facility] Last Admin: 07/02/18 08:52 Dose: 25 mg Metoprolol Succinate (Toprol Xl) 25 mg PO Q12 [facility] Last Admin: 07/02/18 08:53 Dose: 25 mg Ondansetron HCl (Zofran Inj) 4 mg IVP Q6 PRN PRN Reason: Nausea/Vomiting Last Admin: 07/02/18 09:02 Dose: 4 mg Oxycodone HCl (Oxycodone Immediate Release Tab) 5 mg PO Q4 PRN PRN Reason: pain4-6 Last Admin: 07/02/18 06:35 Dose: 5 mg Oxycodone HCl (Oxycontin Extended Release Tab) 10 mg PO Q12 [facility] Stop: 07/05/18 09:01 Last Admin: 07/02/18 08:53 Dose: 10 mg Pravastatin Sodium (Pravachol) 20 mg PO DAILY [facility] Last Admin: 07/02/18 08:53 Dose: 20 mg Fluticasone/Salmeterol (Advair Diskus 250/50) 1 puff IH Q12 [facility] Last Admin: 07/02/18 08:52 Dose: 1 puff Tramadol HCl (Ultram) 50 mg PO Q6 PRN PRN Reason: Other - Extremities Exam Additional comments: L knee: Dressings CDI mild swelling sensation intact SP/DP/TN motor intact EHL/FHL/TA/G pedal pulses intact comps soft NT b/l Assessment and Plan (1) Status post total left knee replacement Assessment & Plan: POD #6 s/p L TKA doing well -PT/OT WBAT -DVT ppx -orthopedically stable -above d/w Dr. Azevedo in agreement Status: Acute
[2018-07-02] MEDS: Enoxaparin 40 mg Syringe SC SCH (11:09)
[2018-07-03] MEDS: oxyCODONE 10 mg ER Tab (oxyCONTIN) PO SCH ×2 (08:36→21:33)
[2018-07-03] MEDS: Enoxaparin 40 mg Syringe SC SCH (08:36)
[2018-07-03] MEDS: Fluticasone-Salmeterol 250-50mcg Diskus IH SCH ×2 (08:36→21:31)
[2018-07-03] MEDS: Pravastatin Sodium 20 MG TAB PO SCH (08:37)
[2018-07-03] MEDS: Metoprolol Succinate 25 mg XL Tab PO SCH ×2 (08:38→21:33)
--- NOTE | 2018-07-03 10:02 | CP.PCM.PN ---
Subjective - Date & Time of Evaluation Date of Evaluation: 07/03/18 Time of Evaluation: 10:30 - Subjective Subjective: Patient seen and examined during PT. Hemodynamically stable, afebrile. Participating with PT well. No acute issues overnight Feeling better.Tremors to UE less as per patient. Objective - Vital Signs/Intake and Output Vital Signs (last 24 hours): Temp Pulse Resp BP Pulse Ox 98.4 F 75 20 132/75 97 07/03/18 08:38 07/03/18 08:38 07/03/18 08:38 07/03/18 08:38 07/03/18 08:38 - Medications Medications: Current Medications Acetaminophen (Tylenol 325mg Tab) 650 mg PO Q6 PRN PRN Reason: Fever >100.4 F Aspirin (Ecotrin) 81 mg PO DAILY [facility] Last Admin: 07/03/18 08:38 Dose: 81 mg Bisacodyl (Dulcolax) 5 mg PO DAILY PRN PRN Reason: Constipation Last Admin: 06/30/18 10:07 Dose: 5 mg Carbidopa/Levodopa (Sinemet) 1 tab PO TID [facility] Last Admin: 07/03/18 08:38 Dose: 1 tab Celecoxib (Celebrex) 100 mg PO Q12 [facility] Last Admin: 07/03/18 08:38 Dose: 100 mg Docusate Sodium (Colace) 100 mg PO TID [facility] Last Admin: 07/03/18 08:38 Dose: 100 mg Enoxaparin Sodium (Lovenox) 40 mg SC DAILY [facility]; Protocol Last Admin: 07/03/18 08:36 Dose: 40 mg Ferrous Sulfate (Feosol) 325 mg PO BID [facility] Last Admin: 07/03/18 08:38 Dose: 325 mg Losartan Potassium (Cozaar) 25 mg PO DAILY [facility] Last Admin: 07/03/18 08:38 Dose: 25 mg Metoprolol Succinate (Toprol Xl) 25 mg PO Q12 [facility] Last Admin: 07/03/18 08:38 Dose: 25 mg Ondansetron HCl (Zofran Odt) 4 mg PO Q8H PRN PRN Reason: Nausea/Vomiting Oxycodone HCl (Oxycodone Immediate Release Tab) 5 mg PO Q4 PRN PRN Reason: pain4-6 Last Admin: 07/02/18 18:26 Dose: 5 mg Oxycodone HCl (Oxycontin Extended Release Tab) 10 mg PO Q12 [facility] Stop: 07/05/18 09:01 Last Admin: 07/03/18 08:36 Dose: 10 mg Pravastatin Sodium (Pravachol) 20 mg PO DAILY [facility] Last Admin: 07/03/18 08:37 Dose: 20 mg Fluticasone/Salmeterol (Advair Diskus 250/50) 1 puff IH Q12 [facility] Last Admin: 07/03/18 08:36 Dose: 1 puff Tramadol HCl (Ultram) 50 mg PO Q6 PRN PRN Reason: Other - Constitutional Appears: Non-toxic, No Acute Distress - Head Exam Head Exam: ATRAUMATIC, NORMOCEPHALIC - Eye Exam Eye Exam: EOMI, PERRL Pupil Exam: NORMAL ACCOMODATION - ENT Exam ENT Exam: Mucous Membranes Moist, Normal Exam - Neck Exam Neck Exam: Full ROM, Normal Inspection - Respiratory Exam Respiratory Exam: Clear to Ausculation Bilateral, NORMAL BREATHING PATTERN. absent: Rales, Rhonchi, Wheezes, Respiratory Distress - Cardiovascular Exam Cardiovascular Exam: REGULAR RHYTHM, RRR, +S1, +S2. absent: JVD - GI/Abdominal Exam GI & Abdominal Exam: Soft. absent: Distended - Rectal Exam Rectal Exam: Deferred - Extremities Exam Additional comments: Dressing to lefty knee - Neurological Exam Neurological Exam: Alert, Awake, CN II-XII Intact, Oriented x3 - Psychiatric Exam Psychiatric exam: Normal Affect - Skin Skin Exam: Dry, Warm Assessment and Plan - Assessment and Plan (Free Text) Assessment: 67 yo female with history of HTN and OA had Left TKR 06/26/18 after failing conservative management. She did well post-op then transferred to TCU on 06/28/18 for therapy. She was found to have UTI and was started on Rocephin 1gm IV daily and received for 5 days. Neurology also was cosnulted for tremors noted to upper extremity.at present in TCU doing well, participating with PT> 1. S/P Left TKR improving , participating with PT pain controlled with pain management Lovenox for DVt prophylaxis 2. UTI- finished 5 days of IV rocephin urine cx with only < 1000 colonies 3. HTN BP stable continue Losartan and Metoprolol 4. Upper extremity tremors Suspected Parkinsonism as per neuro Started Sinemet low dose Will need follow up as outpatient 5.Minimal Acute blood loss anemia Hgb 10 monitor on Ferrous sulfate 6. DVT prophylaxis Lovenox 40mg SC daily
--- NOTE | 2018-07-03 13:49 | CP.PCM.PN ---
Subjective - Date & Time of Evaluation Date of Evaluation: 07/03/18 Time of Evaluation: 13:49 - Subjective Subjective: Patient seen in the dayroom doing ok mild left restring tremor denies knee pain no constipation did 10 steps continue current care Objective - Vital Signs/Intake and Output Vital Signs (last 24 hours): Temp Pulse Resp BP Pulse Ox 98.4 F 73 20 132/75 95 07/03/18 08:38 07/03/18 10:27 07/03/18 08:38 07/03/18 08:38 07/03/18 10:27 - Medications Medications: Current Medications Acetaminophen (Tylenol 325mg Tab) 650 mg PO Q6 PRN PRN Reason: Fever >100.4 F Aspirin (Ecotrin) 81 mg PO DAILY [facility] Last Admin: 07/03/18 08:38 Dose: 81 mg Bisacodyl (Dulcolax) 5 mg PO DAILY PRN PRN Reason: Constipation Last Admin: 06/30/18 10:07 Dose: 5 mg Carbidopa/Levodopa (Sinemet) 1 tab PO TID [facility] Last Admin: 07/03/18 12:16 Dose: 1 tab Celecoxib (Celebrex) 100 mg PO Q12 [facility] Last Admin: 07/03/18 08:38 Dose: 100 mg Docusate Sodium (Colace) 100 mg PO TID [facility] Last Admin: 07/03/18 12:16 Dose: 100 mg Enoxaparin Sodium (Lovenox) 40 mg SC DAILY [facility]; Protocol Last Admin: 07/03/18 08:36 Dose: 40 mg Ferrous Sulfate (Feosol) 325 mg PO BID [facility] Last Admin: 07/03/18 08:38 Dose: 325 mg Losartan Potassium (Cozaar) 25 mg PO DAILY [facility] Last Admin: 07/03/18 08:38 Dose: 25 mg Metoprolol Succinate (Toprol Xl) 25 mg PO Q12 [facility] Last Admin: 07/03/18 08:38 Dose: 25 mg Ondansetron HCl (Zofran Odt) 4 mg PO Q8H PRN PRN Reason: Nausea/Vomiting Oxycodone HCl (Oxycodone Immediate Release Tab) 5 mg PO Q4 PRN PRN Reason: pain4-6 Last Admin: 07/02/18 18:26 Dose: 5 mg Oxycodone HCl (Oxycontin Extended Release Tab) 10 mg PO Q12 [facility] Stop: 07/05/18 09:01 Last Admin: 07/03/18 08:36 Dose: 10 mg Pravastatin Sodium (Pravachol) 20 mg PO DAILY [facility] Last Admin: 07/03/18 08:37 Dose: 20 mg Fluticasone/Salmeterol (Advair Diskus 250/50) 1 puff IH Q12 [facility] Last Admin: 07/03/18 08:36 Dose: 1 puff Tramadol HCl (Ultram) 50 mg PO Q6 PRN PRN Reason: Other
[2018-07-03] MEDS: oxyCODONE 5 mg Immediate Release Tab PO PRN (19:17)
[2018-07-04 07:11] LABS: BLOOD UREA NITROGEN 20 mg/dl (7-17); CALCIUM 8.5 mg/dL (8.4-10.2); GFR NON-AFRICAN AMERICAN > 60
[2018-07-04 07:23] LABS: HEMOGLOBIN 9.7 g/dL (12.0-16.0); MEAN CORPUSCULAR HEMOGLOBIN 30.1 pg (27.0-31.0); MEAN CORPUSCULAR HGB CONC 33.8 g/dL (33.0-37.0); RBC 3.21 Mil/uL (3.80-5.20); RED CELL DISTRIBUTION WIDTH 13.3 % (11.5-14.5); WHITE BLOOD COUNT 7.6 K/uL (4.8-10.8)
[2018-07-04] MEDS: oxyCODONE 10 mg ER Tab (oxyCONTIN) PO SCH ×2 (08:47→20:01)
[2018-07-04] MEDS: Enoxaparin 40 mg Syringe SC SCH (08:47)
[2018-07-04] MEDS: Metoprolol Succinate 25 mg XL Tab PO SCH ×2 (08:48→20:14)
[2018-07-04] MEDS: Fluticasone-Salmeterol 250-50mcg Diskus IH SCH ×2 (08:50→20:13)
[2018-07-04] MEDS: Pravastatin Sodium 20 MG TAB PO SCH (08:50)
[2018-07-05] MEDS: Fluticasone-Salmeterol 250-50mcg Diskus IH SCH ×2 (09:13→21:36)
[2018-07-05] MEDS: Enoxaparin 40 mg Syringe SC SCH (09:15)
[2018-07-05] MEDS: Pravastatin Sodium 20 MG TAB PO SCH (09:15)
[2018-07-05] MEDS: oxyCODONE 10 mg ER Tab (oxyCONTIN) PO SCH ×2 (09:15→21:35)
[2018-07-05] MEDS: Metoprolol Succinate 25 mg XL Tab PO SCH ×2 (09:16→21:36)
[2018-07-06] MEDS: Enoxaparin 40 mg Syringe SC SCH (08:39)
[2018-07-06] MEDS: oxyCODONE 10 mg ER Tab (oxyCONTIN) PO SCH (08:40)
[2018-07-06] MEDS: Metoprolol Succinate 25 mg XL Tab PO SCH (08:42)
[2018-07-06] MEDS: Pravastatin Sodium 20 MG TAB PO SCH (08:44)
[2018-07-06] MEDS: Fluticasone-Salmeterol 250-50mcg Diskus IH SCH (08:44)
[2018-07-06 08:46] VITALS: BP 128/63; PULSE 66
[2018-07-06 09:14] VITALS: RESP 18; TEMP 97.9; O2SAT 99
--- NOTE | 2018-07-06 10:07 | CP.PCM.DIS ---
Provider - Provider Date of Admission: 06/28/18 15:41 Attending physician: Melany Montes MD Time Spent in preparation of Discharge (in minutes): 35 Diagnosis - Discharge Diagnosis (1) Status post total left knee replacement Status: Acute Hospital Course - Lab Results Lab Results: Most Recent Lab Values WBC 7.6 K/uL (4.8-10.8) 07/04/18 06:28 RBC 3.21 Mil/uL (3.80-5.20) L 07/04/18 06:28 Hgb 9.7 g/dL (12.0-16.0) L 07/04/18 06:28 Hct 28.6 % (34.0-47.0) L 07/04/18 06:28 MCV 89.0 fl (81.0-99.0) 07/04/18 06:28 MCH 30.1 pg (27.0-31.0) 07/04/18 06:28 MCHC 33.8 g/dL (33.0-37.0) 07/04/18 06:28 RDW 13.3 % (11.5-14.5) 07/04/18 06:28 Plt Count 269 K/uL (130-400) D 07/04/18 06:28 Sodium 139 mmol/l (132-148) 07/04/18 06:28 Potassium 4.4 MMOL/L (3.6-5.0) 07/04/18 06:28 Chloride 103 mmol/L (98-107) 07/04/18 06:28 Carbon Dioxide 37 mmol/L (22-30) H 07/04/18 06:28 Anion Gap 3 (10-20) L 07/04/18 06:28 BUN 20 mg/dl (7-17) H 07/04/18 06:28 Creatinine 0.8 mg/dl (0.7-1.2) 07/04/18 06:28 Est GFR ( Amer) > 60 07/04/18 06:28 Est GFR (Non-Af Amer) > 60 07/04/18 06:28 Random Glucose 104 mg/dL (65-105) 07/04/18 06:28 Calcium 8.5 mg/dL (8.4-10.2) 07/04/18 06:28 - Hospital Course Hospital Course: 67 yo female with history of HTN and OA had Left TKR 06/26/18 after failing conservative management. She did well post-op then transferred to TCU on 06/28/18 for therapy. She was found to have UTI and was started on Rocephin 1gm IV daily and received for 5 days. Neurology also was cosnulted for tremors noted to upper extremity.at present in TCU doing well, participating with PT. Stable for discharge home with ff PCP and ORTHO IN ONE WEEK. 1. S/P Left TKR improving , participating with PT pain controlled with pain management Lovenox for DVt prophylaxis 2. UTI- finished 5 days of IV rocephin urine cx with only < 1000 colonies 3. HTN BP stable continue Losartan and Metoprolol 4. Upper extremity tremors Suspected Parkinsonism as per neuro Started Sinemet low dose Will need follow up as outpatient 5.Minimal Acute blood loss anemia Hgb 10 monitor on Ferrous sulfate 6. DVT prophylaxis Lovenox 40mg SC daily Discharge Exam - Head Exam Head Exam: ATRAUMATIC, NORMOCEPHALIC - Eye Exam Eye Exam: EOMI, Normal appearance - ENT Exam ENT Exam: Mucous Membranes Moist, Normal Oropharynx - Respiratory Exam Respiratory Exam: Clear to PA & Lateral, NORMAL BREATHING PATTERN - Cardiovascular Exam Cardiovascular Exam: RRR, +S1, +S2 - GI/Abdominal Exam GI & Abdominal Exam: Normal Bowel Sounds, Soft, Unremarkable - Extremities Exam Extremities exam: normal capillary refill, pedal pulses present - Back Exam Back exam: absent: CVA tenderness (L), CVA tenderness (R) - Neurological Exam Neurological exam: Alert, Oriented x3 - Psychiatric Exam Psychiatric exam: Normal Affect, Normal Mood - Skin Skin Exam: Dry, Warm Discharge Plan - Discharge Medications Prescriptions: Aspirin 325 mg PO Q12H #60 tab Bisacodyl [Dulcolax] 5 mg PO DAILY PRN #60 ect PRN Reason: Constipation Carbidopa/Levodopa 25/100 mg [Sinemet] 1 tab PO TID #60 tab Celecoxib [celeBREX] 100 mg PO Q12 #60 cap Docusate [Colace] 100 mg PO TID #90 cap Ferrous Sulfate [Feosol] 325 mg PO BID #60 tab Fluticasone/Vilanterol [Breo Ellipta 200-25 Mcg INH] 1 each IH ASDIR #1 blst.w.dev Losartan Potassium 25 mg PO DAILY #30 tablet Metoprolol Succinate [Toprol Xl] 25 mg PO Q12 #60 tab.er.24h Ondansetron ODT [Zofran ODT] 4 mg PO Q8H PRN #30 odt PRN Reason: Nausea/Vomiting oxyCODONE [oxyCODONE Immediate Release Tab] 5 mg PO Q4 PRN #30 tab PRN Reason: pain4-6 oxyCODONE [oxyCONTIN Extended Release Tab] 10 mg PO Q12 #10 tab Pravastatin Sodium [Pravachol] 20 mg PO DAILY #30 tab traMADol [Ultram] 50 mg PO Q6 PRN #20 tab PRN Reason: Other - Follow Up Plan Condition: GOOD Disposition: HOME/ ROUTINE Instructions: Total Knee Replacement (DC)
== END 2018-07-06 13:20 | disposition home or self-care (01) | DRG 560 ==
LOC: H.TCU 15:41
PROVIDERS: ADMIT Hospitalist; ATTEND Hospitalist
PROC: F08Z1FZ Dressing Techniques Treatment using Assistive, Adaptive, Supportive or Protective Equipment (ICD-10-PCS; principal; 2018-06-28)
PROC: F07Z9FZ Gait Training/Functional Ambulation Treatment using Assistive, Adaptive, Supportive or Protective Equipment (ICD-10-PCS; 2018-06-28)
PROC: F07L6GZ Therapeutic Exercise Treatment of Musculoskeletal System - Lower Back / Lower Extremity using Aerobic Endurance and Conditioning Equipment (ICD-10-PCS; 2018-06-28)
PROC: F07K6GZ Therapeutic Exercise Treatment of Musculoskeletal System - Upper Back / Upper Extremity using Aerobic Endurance and Conditioning Equipment (ICD-10-PCS; 2018-06-28)
DX: Z47.1 Aftercare following joint replacement surgery (principal); N39.0 Urinary tract infection, site not specified; D62 Acute posthemorrhagic anemia; Z96.652 Presence of left artificial knee joint; I10 Essential (primary) hypertension; E78.5 Hyperlipidemia, unspecified; I25.10 Atherosclerotic heart disease of native coronary artery without angina pectoris; E78.00 Pure hypercholesterolemia, unspecified; K59.00 Constipation, unspecified; L30.9 Dermatitis, unspecified; R25.1 Tremor, unspecified

== ENCOUNTER 2018-09-21 06:36 | Day surgery (SDC) | payer BC ==
[2018-09-14 17:55] VITALS: BMI 32.9
[2018-09-21] MEDS ORDERED: Propofol 10 mg/ml Inj (20 ML) ONE (08:34)
[2018-09-21] MEDS ORDERED: Lactated Ringer's 1,000 ML IV ONE (08:54)
[2018-09-21] MEDS ORDERED: Lactated Ringer's 1,000 ML IV SCH (09:15)
[2018-09-21] MEDS ORDERED: Oxycodone/Acetaminophen 5/325 mg Tab PO PRN (09:52)
[2018-09-21 10:54] VITALS: TEMP 97.5
[2018-09-21 11:47] VITALS: BP 139/57; PULSE 70; RESP 12; O2SAT 96
--- NOTE | 2018-09-21 11:48 | OP ---
PROCEDURE DATE: 09/21/2018 PREOPERATIVE DIAGNOSIS: Left knee stiffness. POSTOPERATIVE DIAGNOSIS: Left knee stiffness. PROCEDURE: Left knee manipulation under anesthesia. ATTENDING PHYSICIAN: Deanna Azevedo MD. LINUX ADMIN: None. ANESTHESIA TYPE: Sedation. ESTIMATED BLOOD LOSS: None. COMPLICATIONS: None. HISTORY: The patient is a 67-year-old female, who underwent the left total knee replacement nearly 3 months ago. The patient had restricted range of motion despite physical therapy. She was indicated for manipulation under anesthesia. I reviewed the risks and benefits of the procedure with the patient, which included but not limited to bleeding, infection, nerve vessel damage, continued pain, stiffness, need for further surgery, iatrogenic fractures among others. The patient fully understood the risks and benefits and opted to proceed. DESCRIPTION OF PROCEDURE: On the day of the surgery, the patient was brought down to preop holding area. A laterality sheet was completed confirming patient's left knee to be the correct operative site. Informed consent was signed from the patient. The patient was brought into the operating room table. She was given conscious sedation with gentle pressure. The patient's knee was taken through active range of motion, we were able to obtain full extension and flexion up to 125 degrees and the patient tolerated the procedure well and there were no complications of the procedure. Deanna Azevedo MD
--- NOTE | 2018-09-21 14:49 | RAD ---
Date of service: 09/21/2018 PROCEDURE: Left Knee Radiographs. HISTORY: Postop COMPARISON: 07/27/2018 FINDINGS: BONES: Satisfactory appearance of components of left TKA. JOINTS: Normal. No osteoarthritis. JOINT EFFUSION: Suprapatellar and infrapatellar joint effusions. OTHER FINDINGS: None. IMPRESSION: No evidence of mechanical loosening. Supra and infrapatellar effusions identified common new findings compared to the prior study.
== END 2018-09-21 12:39 | disposition home or self-care (01) ==
LOC: H.OPSURG 06:36
PROVIDERS: ATTEND Orthopaedic Surgery
DX: M25.662 Stiffness of left knee, not elsewhere classified (principal); J45.909 Unspecified asthma, uncomplicated; G47.33 Obstructive sleep apnea (adult) (pediatric); M19.90 Unspecified osteoarthritis, unspecified site; E11.9 Type 2 diabetes mellitus without complications; E78.5 Hyperlipidemia, unspecified; I10 Essential (primary) hypertension; G20 Parkinson's disease; Z96.652 Presence of left artificial knee joint
CPT/HCPCS: 27570; 73560; 82948; J2001; J2704; J7120